=== PATIENT | female | born 1940 | race Caucasian/White ===

== ENCOUNTER → 2016-12-11 | Outpatient (CLI) | payer MEDICARE, OTHER | END | disposition home or self-care (01) | LOC: LABWHC1 14:21 | PROVIDERS: ATTEND Internal Medicine | DX: R31.21 Asymptomatic microscopic hematuria (principal) | CPT/HCPCS: 88108 ==

== ENCOUNTER → 2017-11-13 | Outpatient (CLI) | payer MEDICARE, OTHER | END | disposition home or self-care (01) | LOC: LABWHC1 12:46 | PROVIDERS: ATTEND Orthopaedic Surgery | DX: Z01.812 Encounter for preprocedural laboratory examination (principal) | CPT/HCPCS: 87070 ==

== ENCOUNTER 2017-12-11 06:17 | Inpatient (IN) | payer MEDICARE, OTHER ==
[2017-11-29 13:02] VITALS: BMI 22.8
--- NOTE | 2017-12-10 10:29 | HP ---
HISTORY AND PHYSICAL CHIEF COMPLAINT: Right knee pain. HISTORY OF PRESENT ILLNESS: The patient is a 76-year-old retired female who presents with progressive right knee pain, worsening over the past several years. She notes swelling along with pain that limits her normal function and activities. She has tried medications and injections with only partial temporary relief. PAST MEDICAL HISTORY: Significant for arthritis, hypertension, hypercholesterolemia. PAST SURGICAL HISTORY: Significant for breast biopsy, cataract surgery and tonsillectomy. CURRENT MEDICATIONS: Crestor and losartan along with ibuprofen. ALLERGIES: SHE NOTES ALLERGIES TO CODEINE ALONG WITH CERTAIN WILLIAM INHIBITORS. FAMILY HISTORY: Significant for cancer and heart disease. SOCIAL HISTORY: Negative for current tobacco or alcohol use. REVIEW OF SYSTEMS: Sixteen point review of systems otherwise reviewed and is noncontributory. PHYSICAL EXAMINATION: On examination, the patient is approximately 5 feet 3 130 pounds of mesomorphic habitus. HEENT exam is nonfocal. NECK: Supple. She has painless passive motion of the right hip. Straight leg raise is negative. Active motion right knee -10 to 120 degrees of flexion. She has large effusion. Collaterals are stable, Alexandro's negative, Cari's is equivocal. She is tender about the medial joint line. She has genu varum alignment. Her distal neurovascular exam appears intact in the right lower extremity. Previous weightbearing notch, lateral and Merchant views of the right knee obtained in the office show severe medial compartment narrowing. IMPRESSION: 1. Right knee severe medial compartment osteoarthrosis. 2. Hypertension. RECOMMENDATIONS: I talked to the patient at length regarding her condition and treatment options. At this point, she remains quite symptomatic despite extensive conservative measures. After thorough discussion, she opts to proceed with surgery. We will plan to proceed with right total knee arthroplasty. Risks and benefits were discussed at length in layman's terms. We will institute DVT prophylaxis postoperatively. The patient underwent preoperative medical evaluation by Dr. Rosario. MMCADY / NAVIN: [id number] /
[~2017-12-11 06:17] MED LIST: ACETAMINOPHEN TAB 500 MG TAB PO ONE; MELOXICAM 7.5 MG TAB PO ONE; TRANEXAMIC ACID 1,000 MG in SODIUM CHLORIDE 0.9% 50 ML IVPB ONE; ceFAZolin IN SWFI 2 GM/20 ML SYRINGE IVP ONE; fentaNYL (PF) 50 MCG/ML 2 ML AMP IV PRN
[2017-12-11] MEDS: LACTATED RINGERS 1,000 ML IV SCH ×2 (06:57→19:19)
[2017-12-11] MEDS ORDERED: LIDOCAINE 1% 20 ML VIAL (10MG/ML) FOR IV START INTRADERMA ONE (06:58)
[2017-12-11] MEDS ORDERED: ONDANSETRON 4 MG/2 ML VIAL ONE (07:00)
[2017-12-11] MEDS ORDERED: MIDAZOLAM 2 MG/2 ML VIAL ONE (07:00)
--- NOTE | 2017-12-11 07:42 | P.ONQ ---
Anesthesiology Proc Note - PNB - Peripheral Nerve Block Performed Right Adductor Canal Infusion Time Out Performed: Yes Procedure Start Time: 07:15 Procedure Stop Time: 07:30 Indication: Acute Post-Operative Pain, Requested by physician (Dr Mccullough) Sedation Type: Sedate with meaningful contact maintained Preparation: Sterile Dressing Position: Supine Catheter: Indwelling Needle Types: Toalbiny Needle Size: 100mm (4") Needle Gauge: 18 Technique: Ultrasound Injectate: 0.5% Ropivacaine (see comment for volume) (30 mls) Blood Aspirated: No Pain Paresthesia on Injection Noted: No Resistance on Injection: Normal Events: Uneventful and Well Tolerated
[2017-12-11] MEDS ORDERED: ROPIVACAINE 1,100 MG, SODIUM CHLORIDE 0.9% 500 ML 330 ML MISCELLANE PRN ×2 (07:43)
[2017-12-11] MEDS ORDERED: ROPIVACAINE 246.25 MG, EPINEPHrine 0.5 MG, KETOROLAC 30 MG, cloNIDine HCL/PF 80 MCG, WA... MISCELLANE ONE ×5 (08:05)
[2017-12-11] MEDS ORDERED: ceFAZolin 3,000 MG in SODIUM CHLORIDE 0.9% IRRIGATIO 3,000 ML IRRIGATION ONE (08:53)
[2017-12-11] MEDS ORDERED: MAGNESIUM HYDROXIDE 2,400 MG/10 ML CUP PO PRN (09:52)
[2017-12-11] MEDS ORDERED: ONDANSETRON 4 MG/2 ML VIAL IVP PRN (09:52)
[2017-12-11] MEDS ORDERED: LACTATED RINGERS 1,000 ML IV ONE (09:52)
[2017-12-11] MEDS ORDERED: HYDROmorphone 1 MG/ML 1 ML SYRINGE IVP PRN (09:52)
[2017-12-11] MEDS ORDERED: NALOXONE 0.4 MG/ML 1 ML VIAL IV PRN (09:52)
--- NOTE | 2017-12-11 10:29 | P.OP ---
Date of Procedure: 12/11/17 Preoperative Diagnosis: Right knee severe tricompartmental osteoarthrosis Postoperative Diagnosis: Same Procedure(s) Performed: Right total knee tdxtsfuczegz-mwxpecsu-kusqeemq retaining Implants: Depuy Attune size 5 cemented femoral component, size 4 cemented tibial component , 9 mm articular surface, 32 mm cemented patellar component. This is a cruciate retaining implant. Anesthesia: regional, local, spinal Surgeon: Shun Mccullough Legal Contracts Specialist #1: Napoleon Guerra Estimated Blood Loss (ml): 50 Pathology: other (Bone fragments) Condition: stable Disposition: PACU Indications for Procedure: The patient's a 76-year-old female who presents with progressive right knee pain secondary to osteoarthrosis despite conservative measures. A discussion of the risks and benefits of operative intervention versus continued conservative measures was made with patient. She opted to proceed with surgery. Operative risks to include infection, neurovascular injury, development of blood clots, possible component loosening, possible component failure and need for subsequent procedures was discussed. Informed consent was obtained. Operative Findings: As below Description of Procedure: The patient was brought to the operating room, and after induction of spinal anesthesia the right lower extremity was prepped and draped in normal fashion. The tourniquet was inflated to 270 mmHg. A longitudinal incision extending 3 finger breaths above the superior pole of patella extending to the medial aspect the tibial tubercle was then made. The skin and subcutaneous tissues were divided sharply. Electrocautery was used for hemostasis. A medial parapatellar arthrotomy was then performed. The medial soft tissues to include the superficial and deep portions the medial collateral ligament as well as the medial hamstring tendons were elevated subperiosteally. The proximal medial tibia osteophytes were carefully removed. The patella was everted. A portion of the retropatellar fat pad was excised sharply. The knee was flexed. The anterior cruciate ligament sacrificed. Blunt retractors were placed. A starting hole was made in the distal femur 1 cm anterior to the posterior cruciate ligament origin. An intramedullary femoral guide was then gently inserted planning on 5 valgus distal cut with 9 mm distal resection. The cutting block was pinned in place. The distal cut was then made. The posterior referencing sizing guide was utilized. I felt size 5 was most appropriate. 3 of external rotation was built into the system and verified off the trans-epicondylar axis and the posterior condyles. The cutting block was pinned in place. The anterior, posterior, and chamfer cuts were then made. The sulcus cut was made with the appropriate guide. The trial size 5 femoral component was placed and was fully seated. There is good anterior to posterior and medial to lateral fit. The distal peg holes were drilled. The trial component was removed. Attention was then paid towards preparing the proximal tibia. An extra medullary tibial guide was utilized in line with the tibial shaft and second metatarsal distally. I planned on 7 posterior slope. I planned on 2 mm resection from the medial compartment. The posterior cruciate ligament was protected with a retractor. The proximal tibial cut was made in the bone removed in one fragment. The tibia sized most appropriately size 4. The remnants of the medial and lateral menisci were excised the capsule junction with electrocautery. The posterior osteophytes off the distal femur were carefully removed with a curved osteotome. The trial femoral and tibial components were placed along with a 9 mm articular surface. I was able to obtain full flexion and extension with good stability with varus and valgus stress. After several flexion and extension cycles, the tibial rotation was marked with electrocautery in line with the medial one third of the tibial tubercle. The trial components were then removed. The tibia was prepared in the appropriate rotation with the appropriate drill and keel punch. The flexion and extension gaps were checked and felt to be symmetric. The posterior soft tissues were injected with ropivacaine. The bony surfaces were prepared with pulsatile lavage and dried. Additional drill holes were made in the proximal medial tibia to facilitate cement interdigitation. The tibial component was then cemented in placed and was fully seated. Excess cement was removed. The femoral component was cemented place and was fully seated. Excess cement was removed. The trial 9 mm surface was placed and the knee was put in full extension. The patella component was cemented in placed and was fully seated. After the cement had sufficiently hardened, the knee was again taken through range of motion. Again I was able to obtain full flexion and extension with good stability with varus and valgus stress. The trial articular surface was removed and the final 9 mm tibial surface placed. This was fully seated. Care taken to avoid any soft tissue interposition. Pulsatile lavage was again utilized. The medial parapatellar arthrotomy was closed with #2 Ethibond suture. The tourniquet was deflated with approximately 55 minutes total tourniquet time. Final hemostasis was obtained with electrocautery. The second dose of IV TXA was given. A deep drain was placed exiting laterally. The subcutaneous tissues were reapproximated with interrupted 2-0 Vicryl sutures. The skin was reapproximated with 3-0 subcuticular strata fix suture. Skin tape and adhesive was applied. A sterile dressing was applied. The patient was then awoken from sedation and transferred to the recovery room in good condition. Blood loss was estimated 50 mL. No complications were incurred. Sponge and needle counts were correct at the end of the case. Wilfredo JOEL assisted during the major components the case to include tibial and femoral preparation, component implantation, and closure.
[2017-12-11] MEDS: HYDROmorphone 1 MG/ML 1 ML SYRINGE IVP PRN ×2 (10:44→11:04)
--- NOTE | 2017-12-11 11:32 | XR ---
EXAMINATION TYPE: XR knee limited RT DATE OF EXAM: 12/11/2017 CLINICAL HISTORY: Right knee pain and arthritis status post total knee replacement. TECHNIQUE: Portable AP and crosstable lateral views of the right knee are obtained immediately posto peratively. COMPARISON: None FINDINGS: Metallic hardware from total right knee arthroplasty is seen and appears satisfactory in a lignment and position. There is evidence of recent surgery with scattered subcutaneous gas and perc utaneous suprapatellar surgical drain noted. IMPRESSION: METALLIC HARDWARE FROM TOTAL RIGHT KNEE ARTHROPLASTY IS SATISFACTORY IN ALIGNMENT.
--- NOTE | 2017-12-11 14:22 | P.CONS ---
History of Present Illness - Reason for Consult Consult date: 12/11/17 Medical management - History of Present Illness This is a 76-year-old female patient of Dr. Rosario with past medical history of hypertension, hyperlipidemia, varicose veins. Patient has been admitted under the care of Dr. Mccullough status post right total knee arthroplasty. Patient is seen in the recovery room and has not had any postop complications. Q pump is being placed by anesthesia. Review of Systems All systems: negative Constitutional: Denies chills, Denies fatigue, Denies fever, Denies poor appetite, Denies sweats, Denies weight loss Eyes: denies blurred vision, denies pain Ears, nose, mouth and throat: Denies headache, Denies sore throat, Denies vertigo Cardiovascular: Denies chest pain, Denies decreased exercise tolerance, Denies dyspnea on exertion, Denies edema, Denies leg edema, Denies lightheadedness, Denies shortness of breath, Denies syncope Respiratory: Denies cough, Denies cough with sputum, Denies dyspnea, Denies excessive sputum, Denies hemoptysis, Denies home oxygen, Denies wheezing Gastrointestinal: Denies abdominal pain, Denies diarrhea, Denies loss of appetite, Denies nausea, Denies vomiting Genitourinary: Denies dysuria, Denies hematuria, Denies urgency, Denies urinary frequency Musculoskeletal: Denies frequent falls, Denies gait dysfunction, Denies myalgias Musculoskeletal: right: knee pain Integumentary: Denies pruritus, Denies rash Neurological: Denies change in mentation, Denies confusion, Denies numbness, Denies weakness Psychiatric: Denies anxiety, Denies depression Endocrine: Denies fatigue, Denies weight change Past Medical History Past Medical History: Hyperlipidemia, Hypertension Additional Past Medical History / Comment(s): left leg varicose veins History of Any Multi-Drug Resistant Organisms: None Reported Past Surgical History: Breast Surgery, Tonsillectomy Additional Past Surgical History / Comment(s): benign breast bx, archie cataracts, fatty tumor groin, colonoscopy Past Anesthesia/Blood Transfusion Reactions: Previous Problems w/ Anesthesia, Postoperative Nausea & Vomiting (PONV) Additional Past Anesthesia/Blood Transfusion Reaction / Comm: states "sensitive " to anesthesia, "took several days to clear my system", an anesthesia "cocktail " caused nausea Smoking Status: Never smoker Additional Past Alcohol Use History / Comment(s): Patient is a lifelong nonsmoker. She states she drinks 2-3 alcoholic beverages per week. No illicit drug use. She is a and lives alone. Discharge plan is to [facility]. - Past Family History Sister(s) Family Medical History: Cancer Additional Family Medical History / Comment(s): Patient had one sister that at 50 years of age from kidney cancer. No brothers. Father Additional Family Medical History / Comment(s): Father at age 86 from complications of a lung fungus. Mother Additional Family Medical History / Comment(s): Mother at age 91 from old age. Patient has 3 children with no major medical problems. Medications and Allergies Home Medications Medication Instructions Recorded Confirmed Type Losartan Potassium 50 mg PO BID 11/29/17 12/11/17 History Rosuvastatin Calcium [Crestor] 5 mg PO HS 11/29/17 12/11/17 History Allergies Allergy/AdvReac Type Severity Reaction Status Date / Time codeine Allergy Unknown Verified 12/11/17 11:43 Physical Exam Vitals: Vital Signs Temp Pulse Pulse Resp BP Pulse Ox 12/11/17 11:45 68 16 169/73 100 12/11/17 11:30 68 16 186/72 95 12/11/17 11:15 76 16 158/69 100 12/11/17 11:00 75 16 161/71 100 12/11/17 10:45 72 16 167/72 97 12/11/17 10:30 76 16 169/73 100 12/11/17 10:20 98.3 F 84 16 170/80 98 12/11/17 07:39 71 16 165/70 100 12/11/17 06:38 97.8 F 85 16 196/81 99 Intake and Output 12/10/17 12/11/17 12/11/17 22:59 06:59 14:59 Intake Total 300 701 Output Total 350 Balance 300 351 Intake: IV 300 701 Output: Urine 300 Estimated Blood Loss 50 Gen: This is a 76-year-old female. She is on a stretcher in the recovery room and appears to be comfortable. HEENT: Head is atraumatic, normocephalic. Pupils equal, round. Sclerae is anicteric. NECK: Supple. No JVD. No lymphadenopathy. No thyromegaly. LUNGS: Clear to auscultation. No wheezes or rhonchi. No intercostal retractions. HEART: Regular rate and rhythm. No murmur. ABDOMEN: Soft. Bowel sounds are present. No masses. No tenderness. EXTREMITIES: No pedal edema. No calf tenderness. Large dressing in place to the right knee which was not removed. NEUROLOGICAL: Patient is awake, alert and oriented x3. Cranial nerves 2 through 12 are grossly intact. Assessment and Plan Plan: 1. Osteoarthritis status post right total knee arthroplasty. Continue current pain management, PT OT per orthopedics. Incentive spirometry to reduce atelectases and hospital-acquired pneumonia. Q pump in place. Xarelto is DVT prophylaxis. 2. Hypertension. Patient is on losartan 50 mg twice daily which will be resumed with parameters. 3. Hyperlipidemia. Continue Crestor 5 mg at bedtime. 4. GI prophylaxis. Pepcid. Patient will be admitted to the hospital for a minimum of 2 night stay. Discharge plan: [facility] under the care of Dr. Rosario Impression and plan of care have been directed as dictated by the signing physician. Cathi Young nurse practitioner acting as scribe for signing physician.
[2017-12-11] MEDS: ceFAZolin IN SWFI 2 GM/20 ML SYRINGE IVP SCH ×2 (15:53→23:37)
[2017-12-11] MEDS: HYDROcodone/APAP 5-325MG 1 EACH TAB PO PRN ×2 (17:47→23:36)
[2017-12-11] MEDS: LOSARTAN 50 MG TAB PO SCH (20:22)
[2017-12-11] MEDS: ATORVASTATIN 10 MG TAB PO SCH (20:22)
[2017-12-11] MEDS: SENNOSIDES-DOCUSATE SODIUM 1 EACH TAB PO SCH (20:22)
[2017-12-11] MEDS: traMADol 50 MG TAB PO PRN (22:17)
[2017-12-12] MEDS: HYDROcodone/APAP 5-325MG 1 EACH TAB PO PRN ×3 (05:17→19:08)
[2017-12-12] MEDS: HYDROmorphone 1 MG/ML 1 ML SYRINGE IVP PRN (07:13)
[2017-12-12 07:45] LABS: Basophils % (A) 1 %; Eosinophils # (A) 0.1 k/uL (0-0.7); Eosinophils % (A) 2 %; HCT 34.5 % (34.0-46.0); HGB 11.4 gm/dL (11.4-16.0); Lymphocytes # (A) 1.1 k/uL (1.0-4.8); Lymphocytes % (A) 20 %; MCH 32.8 pg (25.0-35.0); MCHC 33.2 g/dL (31.0-37.0); MCV 98.8 fL (80.0-100.0); Mean Platelet Volume 6.7; Monocytes # (A) 0.4 k/uL (0-1.0); Monocytes % (A) 8 %; Neutrophils # (A) 3.6 k/uL (1.3-7.7); Neutrophils % (A) 68 %; Platelet Count 175 k/uL (150-450); RBC 3.49 m/uL (3.80-5.40); RDW 12.4 % (11.5-15.5); WBC 5.3 k/uL (3.8-10.6)
[2017-12-12] MEDS: RIVAROXABAN 10 MG TAB PO SCH (08:10)
[2017-12-12] MEDS: LOSARTAN 50 MG TAB PO SCH ×2 (08:10→20:42)
--- NOTE | 2017-12-12 10:08 | P.PN ---
Subjective Progress Note Date: 12/12/17 Principal diagnosis: Status post right total knee arthroplasty Patient seen resting in her hospital bed, she appears comfortable. She's ambulated with therapy. She denies any chest pain, shortness of breath, fever chills. Objective - Vital Signs Vital signs: Vital Signs Temp 98.1 F 12/12/17 07:31 Pulse 74 12/12/17 07:31 Resp 16 12/12/17 07:31 BP 145/64 12/12/17 07:31 Pulse Ox 98 12/12/17 07:31 Intake & Output 12/11/17 12/12/17 12/12/17 18:59 06:59 18:59 Intake Total 1141 350 Output Total 990 2080 Balance 151 -2080 350 Weight 57.606 kg Intake: IV 1101 Intake, IV Titration 40 Amount Lactated Ringers 1,000 ml 40 @ 40 mls/hr IV .Q24H [facility] Rx#:[id number] Oral 350 Output: Drainage 230 Right Knee 230 Urine 850 1850 Estimated Blood Loss 140 Other: Voiding Method Indwelling Catheter Indwelling Catheter - Exam Right Lower extremity: Incision is clean, dry, and intact. The prineo tape is in good condition. There is minimal soft tissue swelling and ecchymosis surrounding the medial and lateral aspects of the incision. Calf is soft, no tenderness with palpation. Plantar flexion, dorsiflexion, EHL, FHL are intact. Sensory exam to light touch throughout the extremity is intact, dorsal pedis pulses 2+. - Labs CBC & Chem 7: 12/12/17 07:24 Labs: Abnormal Lab Results - Last 24 Hours (Table) 12/12/17 Range/Units 07:24 RBC 3.49 L (3.80-5.40) m/uL Assessment and Plan Plan: Assessment: Postoperative day 1 status post right total knee arthroplasty Plan: Pain control, continue use of oral medication as needed GI and DVT prophylaxis, continue current medication Daily dressing changes/ice and elevate Encourage incentive spirometer Continue work physical therapy and use of CPM Medical recommendations Discharge planning: Patient is interested in going to rehab, plan for discharge in the next couple days Time with Patient: Less than 30
[2017-12-12] MEDS ORDERED: HYDROmorphone 2 MG TAB PO PRN ×2 (10:45→10:46)
--- NOTE | 2017-12-12 15:23 | P.PN ---
Subjective Progress Note Date: 12/12/17 This is a 76-year-old female patient of Dr. Rosario with past medical history of hypertension, hyperlipidemia, varicose veins. Patient has been admitted under the care of Dr. Mccullough status post right total knee arthroplasty. Patient is seen in the recovery room and has not had any postop complications. Q pump is being placed by anesthesia. 12/12: Patient has had no postoperative complications. She has worked with physical therapy. She states her pain is tolerable. Vital signs have been stable. No nausea vomiting. She is on Xarelto for DVT prophylaxis. Review Of Systems: Constitutional: No fever, no chills, no night sweats. EENT: No headache. Lungs: No shortness of breath, cough, no sputum production. No wheezing. Cardiovascular: No chest pain, no lower extremity edema. Abdominal: No abdominal pain. No nausea, vomiting. No diarrhea. No constipation. No bloody or tarry stools.. No loss of appetite. Genitourinary: No dysuria, increased frequency, urgency. No urinary retention. Musculoskeletal: No myalgias. No muscle weakness, no gait dysfunction, no frequent falls. No back pain. No neck pain. Integumentary: no lesions. No rash or pruritus. No unusual bruising. No change in hair or nails. Objective - Vital Signs Vital signs: Vital Signs Temp 98.1 F 12/12/17 07:31 Pulse 74 12/12/17 07:31 Resp 16 12/12/17 07:31 BP 145/64 12/12/17 07:31 Pulse Ox 98 12/12/17 07:31 Intake & Output 12/11/17 12/12/17 12/12/17 18:59 06:59 18:59 Intake Total 1141 350 Output Total 990 2080 Balance 151 -2080 350 Weight 57.606 kg Intake: IV 1101 Intake, IV Titration 40 Amount Lactated Ringers 1,000 ml 40 @ 40 mls/hr IV .Q24H [facility] Rx#:[id number] Oral 350 Output: Drainage 230 Right Knee 230 Urine 850 1850 Estimated Blood Loss 140 Other: Voiding Method Indwelling Catheter Indwelling Catheter - Exam Gen: This is a 76-year-old female. She is in bed and appears to be comfortable. HEENT: Head is atraumatic, normocephalic. Pupils equal, round. Sclerae is anicteric. NECK: Supple. No JVD. No lymphadenopathy. No thyromegaly. LUNGS: Clear to auscultation. No wheezes or rhonchi. No intercostal retractions. HEART: Regular rate and rhythm. No murmur. ABDOMEN: Soft. Bowel sounds are present. No masses. No tenderness. EXTREMITIES: No pedal edema. No calf tenderness. Small dressing in place to the right knee with no break through bleeding or drainage. NEUROLOGICAL: Patient is awake, alert and oriented x3. Cranial nerves 2 through 12 are grossly intact. - Labs CBC & Chem 7: 12/12/17 07:24 Labs: Abnormal Lab Results - Last 24 Hours (Table) 12/12/17 Range/Units 07:24 RBC 3.49 L (3.80-5.40) m/uL Assessment and Plan Plan: 1. Osteoarthritis status post right total knee arthroplasty. Continue current pain management, PT OT per orthopedics. Incentive spirometry to reduce atelectases and hospital-acquired pneumonia. Q pump in place. Xarelto is DVT prophylaxis. 2. Hypertension. Patient is on losartan 50 mg twice daily which will be resumed with parameters. Blood pressure is stable. 3. Hyperlipidemia. Continue Crestor 5 mg at bedtime. 4. GI prophylaxis. Pepcid. Discharge plan: [facility] under the care of Dr. Rosario Impression and plan of care have been directed as dictated by the signing physician. Cathi Young nurse practitioner acting as scribe for signing physician.
--- NOTE | 2017-12-12 19:35 | P.PN ---
Progress Note - Text 12/12 5648 77-year-old female status post total knee replacement . Patient has On-Q pump infusion for postop pain control with a VAS of 3. Plan to continue On-Q pump infusion
[2017-12-12] MEDS: ATORVASTATIN 10 MG TAB PO SCH (20:42)
[2017-12-12] MEDS: SENNOSIDES-DOCUSATE SODIUM 1 EACH TAB PO SCH (20:42)
[2017-12-13] MEDS: traMADol 50 MG TAB PO PRN ×2 (09:50→16:43)
[2017-12-13] MEDS: LOSARTAN 50 MG TAB PO SCH ×2 (09:52→20:33)
[2017-12-13] MEDS: RIVAROXABAN 10 MG TAB PO SCH (09:52)
--- NOTE | 2017-12-13 13:14 | P.PN ---
Subjective Progress Note Date: 12/13/17 his is a 76-year-old female patient of Dr. Rosario with past medical history of hypertension, hyperlipidemia, varicose veins. Patient has been admitted under the care of Dr. Mccullough status post right total knee arthroplasty. Patient is seen in the recovery room and has not had any postop complications. Q pump is being placed by anesthesia. 12/12: Patient has had no postoperative complications. She has worked with physical therapy. She states her pain is tolerable. Vital signs have been stable. No nausea vomiting. She is on Xarelto for DVT prophylaxis. 12/13 patient examined bedside with no acute abnormality. Denies constipation denies any shortness of breath or chest pain. Plan for subacute rehab tomorrow Review Of Systems: no change Constitutional: No fever, no chills, no night sweats. EENT: No headache. Lungs: No shortness of breath, cough, no sputum production. No wheezing. Cardiovascular: No chest pain, no lower extremity edema. Abdominal: No abdominal pain. No nausea, vomiting. No diarrhea. No constipation. No bloody or tarry stools.. No loss of appetite. Genitourinary: No dysuria, increased frequency, urgency. No urinary retention. Musculoskeletal: No myalgias. No muscle weakness, no gait dysfunction, no frequent falls. No back pain. No neck pain. Integumentary: no lesions. No rash or pruritus. No unusual bruising. No change in hair or nails. Objective - Vital Signs Vital signs: Vital Signs Temp 98.6 F 12/13/17 08:45 Pulse 86 12/13/17 08:45 Resp 16 12/13/17 08:45 BP 146/65 12/13/17 08:45 Pulse Ox 99 12/13/17 08:45 Intake & Output 12/12/17 12/13/17 12/13/17 18:59 06:59 18:59 Intake Total 1150 240 Balance 1150 240 Intake: Intake, IV Titration 200 Amount Lactated Ringers 1,000 ml 200 @ 40 mls/hr IV .Q24H [facility] Rx#:[id number] Oral 950 240 Other: Voiding Method Toilet Toilet Toilet # Voids 2 1 - Exam Gen: This is a 77-year-old female. She is inchair and appears to be comfortable. HEENT: Head is atraumatic, normocephalic. Pupils equal, round. Sclerae is anicteric. NECK: Supple. No JVD. No lymphadenopathy. No thyromegaly. LUNGS: Clear to auscultation. No wheezes or rhonchi. No intercostal retractions. HEART: Regular rate and rhythm. No murmur. ABDOMEN: Soft. Bowel sounds are present. No masses. No tenderness. EXTREMITIES: No pedal edema. No calf tenderness. Small dressing in place to the right knee with no break through bleeding or drainage. mobility improved since yesterday NEUROLOGICAL: Patient is awake, alert and oriented x3. Cranial nerves 2 through 12 are grossly intact. - Labs CBC & Chem 7: 12/12/17 07:24 Assessment and Plan Plan: 1. Osteoarthritis status post right total knee arthroplasty. Continue current pain management, PT OT per orthopedics. Incentive spirometry to reduce atelectases and hospital-acquired pneumonia. Q pump in place. Xarelto is DVT prophylaxis. 2. Hypertension. Patient is on losartan 50 mg twice daily which will be resumed with parameters. Blood pressure is stable. 3. Hyperlipidemia. Continue Crestor 5 mg at bedtime. 4. GI prophylaxis. Pepcid. [facility] of Dr. Ros[facility]
--- NOTE | 2017-12-13 14:01 | P.PN ---
Subjective Progress Note Date: 12/13/17 Principal diagnosis: Status post right total knee arthroplasty Patient seen resting in her hospital bed, she appears comfortable. She's ambulated with therapy. She denies any chest pain, shortness of breath, fever chills. Objective - Vital Signs Vital signs: Vital Signs Temp 98.6 F 12/13/17 08:45 Pulse 86 12/13/17 08:45 Resp 16 12/13/17 08:45 BP 146/65 12/13/17 08:45 Pulse Ox 99 12/13/17 08:45 Intake & Output 12/12/17 12/13/17 12/13/17 18:59 06:59 18:59 Intake Total 1150 240 Balance 1150 240 Intake: Intake, IV Titration 200 Amount Lactated Ringers 1,000 ml 200 @ 40 mls/hr IV .Q24H MICHAEL Rx#:[id number] Oral 950 240 Other: Voiding Method Toilet Toilet Toilet # Voids 2 1 - Exam Right Lower extremity: Incision is clean, dry, and intact. The prineo tape is in good condition. There is minimal soft tissue swelling and ecchymosis surrounding the medial and lateral aspects of the incision. Calf is soft, no tenderness with palpation. Plantar flexion, dorsiflexion, EHL, FHL are intact. Sensory exam to light touch throughout the extremity is intact, dorsal pedis pulses 2+. - Labs CBC & Chem 7: 12/12/17 07:24 Assessment and Plan Plan: Assessment: Postoperative day #2 status post right total knee arthroplasty Plan: Pain control, continue use of oral medication as needed GI and DVT prophylaxis, continue current medication Daily dressing changes/ice and elevate Encourage incentive spirometer Continue work physical therapy and use of CPM Medical recommendations Discharge planning: Plan for discharge tomorrow Time with Patient: Less than 30
[2017-12-13] MEDS: SENNOSIDES-DOCUSATE SODIUM 1 EACH TAB PO SCH (20:33)
[2017-12-13] MEDS: ATORVASTATIN 10 MG TAB PO SCH (20:33)
[2017-12-14] MEDS: traMADol 50 MG TAB PO PRN ×3 (00:17→13:21)
[2017-12-14] MEDS: RIVAROXABAN 10 MG TAB PO SCH (07:31)
[2017-12-14] MEDS: LOSARTAN 50 MG TAB PO SCH (07:31)
[2017-12-14 07:55] LABS: Basophils % (A) 1 %; Eosinophils # (A) 0.1 k/uL (0-0.7); Eosinophils % (A) 2 %; HCT 35.2 % (34.0-46.0); HGB 11.3 gm/dL (11.4-16.0); Lymphocytes # (A) 0.9 k/uL (1.0-4.8); Lymphocytes % (A) 17 %; MCH 31.8 pg (25.0-35.0); MCV 99.2 fL (80.0-100.0); Mean Platelet Volume 6.8; Monocytes # (A) 0.3 k/uL (0-1.0); Monocytes % (A) 6 %; Neutrophils # (A) 3.7 k/uL (1.3-7.7); Neutrophils % (A) 72 %; Platelet Count 196 k/uL (150-450); RBC 3.55 m/uL (3.80-5.40); RDW 12.3 % (11.5-15.5); WBC 5.1 k/uL (3.8-10.6)
[2017-12-14 08:19] VITALS: RESP 14; TEMP 98.7
[2017-12-14 08:53] VITALS: BP 122/57; PULSE 86
--- NOTE | 2017-12-14 10:27 | P.PN ---
Subjective Progress Note Date: 12/14/17 Principal diagnosis: Status post right total knee arthroplasty Patient seen resting in her hospital bed, she appears comfortable. She's ambulated with therapy. She denies any chest pain, shortness of breath, fever chills. Objective - Vital Signs Vital signs: Vital Signs Temp 98.7 F 12/14/17 07:31 Pulse 86 12/14/17 08:53 Resp 14 12/14/17 07:31 BP 122/57 12/14/17 08:53 Pulse Ox 99 12/14/17 00:13 Intake & Output 12/13/17 12/14/17 12/14/17 18:59 06:59 18:59 Intake Total 702 Balance 702 Intake: Intake, IV Titration 0 Amount Lactated Ringers 1,000 ml 0 @ 0 mls/hr IV .[employer] ONE Rx#:[id number] Oral 702 Other: Voiding Method Toilet Toilet Toilet # Voids 2 1 - Exam Right Lower extremity: Incision is clean, dry, and intact. The prineo tape is in good condition. There is minimal soft tissue swelling and ecchymosis surrounding the medial and lateral aspects of the incision. Calf is soft, no tenderness with palpation. Plantar flexion, dorsiflexion, EHL, FHL are intact. Sensory exam to light touch throughout the extremity is intact, dorsal pedis pulses 2+. - Labs CBC & Chem 7: 12/14/17 07:12 Labs: Abnormal Lab Results - Last 24 Hours (Table) 12/14/17 Range/Units 07:12 RBC 3.55 L (3.80-5.40) m/uL Hgb 11.3 L (11.4-16.0) gm/dL Lymphocytes # 0.9 L (1.0-4.8) k/uL Assessment and Plan Plan: Assessment: Postoperative day #3 status post right total knee arthroplasty Plan: Pain control, continue use of oral medication as needed GI and DVT prophylaxis, discharge on Xarelto 10mg Daily dressing changes/ice and elevate Encourage incentive spirometer Continue work physical therapy and use of CPM Medical recommendations Discharge planning: Plan for discharge to rehab today Time with Patient: Less than 30
--- NOTE | 2017-12-14 10:33 | P.DS ---
Providers Date of admission: 12/11/17 06:17 Expected date of discharge: 12/14/17 Attending physician: Shun Mccullough Consults: 12/11/17 09:55 Consult Physician Routine Consulting Provider: Daniela Rosario Consult Reason/Comments: Medical Management Do you want consulting provider notified?: Yes Primary care physician: Daniela Rosario Hospital Course: Date of admission: 12/11/2017 Date of discharge: 12/14/2017 Admission diagnosis: Status post right total knee arthroplasty Discharge diagnosis: Same Attending physician: Dr. Mccullough Surgical procedures: Right total knee arthroplasty Brief history: Patient is a 77-year-old female with a history of progressive primary right knee osteoarthritis. At this point patient has failed conservative treatment measures and has opted to proceed with a elective right total knee arthroplasty. Hospital course: Details of patient's surgery can be found in operative report. Patient tolerated the procedure well and was subsequently transported to orthopedic floor. Patient's orthopeidc and medical care was provided daily. Patient had daily laboratory tests performed for evaluation of overall blood counts. Patient had daily physical therapy to include strengthening range of motion as well as education with walker ambulation. Patient had daily CPM usage as part of their physical therapy program. Patient was treated with Xarelto for their postoperative DVT prophylaxis during their inpatient stay. Patient was noted to have a relatively uneventful postoperative course. Patient reported satisfactory pain control with oral pain medications by postoperative day 0. Patient showed satisfactory progress with physical therapy. Patient moved steadily through the program and had no difficulty meeting the goals by postoperative day 3. Given patient's otherwise satisfactory course and having met physical therapy goals, plan is to discharge patient rehab on postoperative day 3. Discharge condition/disposition: Patient will be discharged to rehab in stable condition. Discharge medications: Instructions are given on resumption of patient's normal daily medications per primary care recommendation, in addition patient will be prescribed [place] 5 mg/325 mg, tramadol 50 mg, Xarelto 10 m8. Discharge instructions: 1. Wound care and infection precautions, keep incision dry and covered while showering, no lotions, creams, moisturizers. No soaking, tubs, pools, hottubs. Do not scrub over the incision. 2. Weight-bear as tolerated with walker / cane until follow-up. 3. Ice and elevate when necessary. Do not exceed 20 minutes per hour with ice pack. 4. Utilize compression sleeve until seen at first follow up appointment. 5. Visiting nursing care. 6. Home physical therapy including home CPM. 7. Pain meds and anticoagulants per prescription. 8. Pain medication has potential to cause constipation. Increase oral fluid and fiber intake. Contact primary care provider if you have not had a bowel movement within 48 hours after discharge 9. No anti-inflammatory medication until discussed at first post operative visit, this including Motrin, Aleve, Mobic, Diclofenac. 10. Follow up in office at 2 weeks postop with Wilfredo Guerra PA-C 11. Follow up with your primary care doctor 7-10 days after discharge. 12. Contact [facility] with any questions, . Procedures: Right total knee arthroplasty Patient Condition at Discharge: Good Plan - Discharge Summary Discharge Rx Participant: Yes New Discharge Prescriptions: New Hydrocodone/Acetaminophen [[place] 5-325] 1 each PO Q6HR PRN #28 tab PRN Reason: Pain Rivaroxaban [Xarelto] 10 mg PO DAILY #12 tab traMADol HCl [Ultram] 50 mg PO Q6H PRN #28 tab PRN Reason: Pain No Action Rosuvastatin Calcium [Crestor] 5 mg PO HS Losartan Potassium 50 mg PO BID Discharge Medication List Losartan Potassium 50 mg PO BID 11/29/17 [History] Rosuvastatin Calcium [Crestor] 5 mg PO HS 11/29/17 [History] Hydrocodone/Acetaminophen [[place] 5-325] 1 each PO Q6HR PRN #28 tab 12/14/17 [Rx] Rivaroxaban [Xarelto] 10 mg PO DAILY #12 tab 12/14/17 [Rx] traMADol HCl [Ultram] 50 mg PO Q6H PRN #28 tab 12/14/17 [Rx] Follow up Appointment(s)/Referral(s): Napoleon Guerra PAC [PHYSICIAN [employer]LE[employer] SERVICE OFFICER] - 12/26/17 3:30 pm Patient Instructions/Handouts: *Surgery [facility] - On-Q Pain Pump Discharge Instructions, Knee Replacement (DC) Discharge Disposition: TRANSFER TO SNF/ECF
--- NOTE | 2017-12-14 11:45 | P.PN ---
Subjective Progress Note Date: 12/14/17 his is a 76-year-old female patient of Dr. Rosario with past medical history of hypertension, hyperlipidemia, varicose veins. Patient has been admitted under the care of Dr. Mccullough status post right total knee arthroplasty. Patient is seen in the recovery room and has not had any postop complications. Q pump is being placed by anesthesia. 12/12: Patient has had no postoperative complications. She has worked with physical therapy. She states her pain is tolerable. Vital signs have been stable. No nausea vomiting. She is on Xarelto for DVT prophylaxis. 12/13 patient examined bedside with no acute abnormality. Denies constipation denies any shortness of breath or chest pain. Plan for subacute rehab tomorrow 12/14 patient sitting on the side of the bed. Complains of no chest pain no shortness of breath does have some swelling in the lower extremity post surgery. Some redness is noted around the surgical site but no sign of infection. Patient denies any fever or chills last night Review Of Systems: Constitutional: No fever, no chills, no night sweats. EENT: No headache. Lungs: No shortness of breath, cough, no sputum production. No wheezing. Cardiovascular: No chest pain, no lower extremity edema. Abdominal: No abdominal pain. No nausea, vomiting. No diarrhea. No constipation. No bloody or tarry stools.. No loss of appetite. Genitourinary: No dysuria, increased frequency, urgency. No urinary retention. Musculoskeletal: No myalgias. No muscle weakness, no gait dysfunction, no frequent falls. No back pain. No neck pain. Integumentary: no lesions. No rash or pruritus. No unusual bruising. No change in hair or nails. Positive for redness around the surgical site no site of infection Objective - Vital Signs Vital signs: Vital Signs Temp 98.7 F 12/14/17 07:31 Pulse 86 12/14/17 08:53 Resp 14 12/14/17 07:31 BP 122/57 12/14/17 08:53 Pulse Ox 99 12/14/17 00:13 Intake & Output 12/13/17 12/14/17 12/14/17 18:59 06:59 18:59 Intake Total 702 Balance 702 Intake: Intake, IV Titration 0 Amount Lactated Ringers 1,000 ml 0 @ 0 mls/hr IV .STK-MED ONE Rx#:[id number] Oral 702 Other: Voiding Method Toilet Toilet Toilet # Voids 2 1 - Exam Gen: This is a 77-year-old female. She is inchair and appears to be comfortable. HEENT: Head is atraumatic, normocephalic. Pupils equal, round. Sclerae is anicteric. NECK: Supple. No JVD. No lymphadenopathy. No thyromegaly. LUNGS: Clear to auscultation. No wheezes or rhonchi. No intercostal retractions. HEART: Regular rate and rhythm. No murmur. ABDOMEN: Soft. Bowel sounds are present. No masses. No tenderness. EXTREMITIES: No pedal edema. No calf tenderness. Small dressing in place to the right knee with no break through bleeding or drainage. mobility improved since yesterday NEUROLOGICAL: Patient is awake, alert and oriented x3. Cranial nerves 2 through 12 are grossly intact. - Labs CBC & Chem 7: 12/14/17 07:12 Labs: Abnormal Lab Results - Last 24 Hours (Table) 12/14/17 Range/Units 07:12 RBC 3.55 L (3.80-5.40) m/uL Hgb 11.3 L (11.4-16.0) gm/dL Lymphocytes # 0.9 L (1.0-4.8) k/uL Assessment and Plan Plan: 1. Osteoarthritis status post right total knee arthroplasty. Continue current pain management, PT OT per orthopedics. Incentive spirometry to reduce atelectases and hospital-acquired pneumonia. Xarelto 10 milligrams by mouth daily is DVT prophylaxis. 2. Hypertension. Patient is on losartan 50 mg twice daily which will be resumed with parameters. Blood pressure is stable. 3. Hyperlipidemia. Continue Crestor 5 mg at bedtime. 4. GI prophylaxis. Pepcid. [facility] Abraham musa
== END 2017-12-14 16:45 | DRG 470 ==
LOC: 2ORMAIN 06:17 → 3SUR 10:34
PROVIDERS: ADMIT Orthopaedic Surgery; ATTEND Orthopaedic Surgery
PROC: 0SRC0J9 Replacement of Right Knee Joint with Synthetic Substitute, Cemented, Open Approach (ICD-10-PCS; principal; 2017-12-11 08:00)
DX: M17.11 Unilateral primary osteoarthritis, right knee (principal); E78.00 Pure hypercholesterolemia, unspecified; E78.5 Hyperlipidemia, unspecified; I10 Essential (primary) hypertension; Z80.51 Family history of malignant neoplasm of kidney; Z60.2 Problems related to living alone; Z88.8 Allergy status to other drugs, medicaments and biological substances; Z79.899 Other long term (current) drug therapy; Z88.5 Allergy status to narcotic agent
CPT/HCPCS: 85025; 88300

== ENCOUNTER → 2019-01-17 | Outpatient (CLI) | payer MEDICARE, OTHER ==
--- NOTE | 2019-01-18 15:51 | ECHOF ---
Referral Reason:I35.0 valve stenosis MEASUREMENTS -------- HEIGHT: 158.8 cm WEIGHT: 55.3 kg BP: RVIDd: 2.8 cm (< 3.3) IVSd: 1.4 cm (0.6 - 1.1) LVIDd: 3.4 cm (3.9 - 5.3) LVPWd: 1.3 cm (0.6 - 1.1) IVSs: 1.6 cm LVIDs: 2.7 cm LVPWs: 1.8 cm LA Diam: 3.1 cm (2.7 - 3.8) LAESV Index (A-L): 32.06 ml/m Ao Diam: 3.2 cm (2.0 - 3.7) AV Cusp: 1.5 cm (1.5 - 2.6) MV EXCURSION: 14.273 mm (> 18.000) MV EF SLOPE: 37 mm/s (70 - 150) EPSS: 0.3 cm MV E Burton: 0.68 m/s MV DecT: 207 ms MV A Burton: 1.11 m/s MV E/A Ratio: 0.61 AV maxP.45 mmHg AV meanP.11 mmHg AR PHT: 347 ms RAP: 5.00 mmHg RVSP: 25.90 mmHg TAPSE: 21.52 mm FINDINGS -------- Sinus rhythm. This was a technically good study. The left ventricular size is normal. There is moderate concentric left ventricular hypertrophy. O verall left ventricular systolic function is normal with, an EF between 60 - 65 %. The right ventricle is normal in size. LA is midly dilated 29-33ml/m2. The right atrium is normal in size. Interatrial and interventricular septum intact. There is mild aortic valve sclerosis. There is mild aortic regurgitation. Peak/mean gradient acro ss the Aortic Valve is 14.45mmHg / 6.11mmHg. The mitral valve leaflets are mildly thickened. Mild mitral annular calcification present. There is trace to mild mitral regurgitation. Mild tricuspid regurgitation present. Right ventricular systolic pressure is normal at < 35 mmHg. Trace/mild (physiologic) pulmonic regurgitation. The aortic root size is normal. Normal inferior vena cava with normal inspiratory collapse consistent with estimated right atrial pre ssure of 5 mmHg. There is no pericardial effusion. CONCLUSIONS -------- 1. Sinus rhythm. 2. This was a technically good study. 3. The left ventricular size is normal. 4. There is moderate concentric left ventricular hypertrophy. 5. Overall left ventricular systolic function is normal with, an EF between 60 - 65 %. 6. The right ventricle is normal in size. 7. LA is midly dilated 29-33ml/m2. 8. The right atrium is normal in size. 9. Interatrial and interventricular septum intact. 10. There is mild aortic valve sclerosis. 11. There is mild aortic regurgitation. 12. Peak/mean gradient across the Aortic Valve is 14.45mmHg / 6.11mmHg. 13. The mitral valve leaflets are mildly thickened. 14. Mild mitral annular calcification present. 15. There is trace to mild mitral regurgitation. 16. Mild tricuspid regurgitation present. 17. Right ventricular systolic pressure is normal at < 35 mmHg. 18. Trace/mild (physiologic) pulmonic regurgitation. 19. The aortic root size is normal. 20. Normal inferior vena cava with normal inspiratory collapse consistent with estimated right atrial pressure of 5 mmHg. 21. There is no pericardial effusion. PAPER BAG PRESS OPERATOR: Preeti Layton RDCS
--- NOTE | 2019-01-20 16:41 | US ---
EXAMINATION TYPE: US carotid duplex BILAT DATE OF EXAM: 01/17/2019 COMPARISON: 12/19/2016 CLINICAL HISTORY: 78-year-old female I65.43 carotid stenosis. TECHNIQUE: Carotid duplex ultrasound examination. Direct Doppler criteria was utilized. EXAM MEASUREMENTS: RIGHT: Peak Systolic Velocity (PSV) cm/sec ----- Right CCA: 95.5 ----- Right ICA: 165.0 ----- Right ECA: 148.6 ICA/CCA ratio: 1.7 RIGHT: End Diastole cm/sec ----- Right CCA: 0 ----- Right ICA: 31.8 ----- Right ECA: 0 LEFT: Peak Systolic Velocity (PSV) cm/sec ----- Left CCA: 73.8 ----- Left ICA: 115.9 ----- Left ECA: 150.9 ICA/CCA ratio: 1.5 LEFT: End Diastole cm/sec ----- Left CCA: 22.4 ----- Left ICA: 31.8 ----- Left ECA: 0 VERTEBRALS (direction of flow): Right Vertebral: Antegrade Left Vertebral: Antegrade Rhythm: Normal Bilateral scattered calcifications seen in the bilateral ICAs. IMPRESSION: Mildly elevated velocities in the distal right ICA could reflect a mild or moderate right ICA stenosi s or could be secondary to turbulence. Criteria for Assigning % of Stenosis / Diameter reduction (Estimation based on the indirect measurements of the internal carotid artery velocities (ICA PSV). 1. Normal (no stenosis)=ICA PSV < 125 cm/s: ratio < 2.0: ICA EDV<40 cm/s. 2. Less than 50% stenosis=ICA PSV < 125 cm/s: ratio < 2.0: ICA EDV<40 cm/s. 3. 50 to 69% stenosis=ICA PSV of 125 to 230 cm/s: ration 2.0 ? 4.0: ICA EDV 40-100 cm/s. 4. Greater than 70% stenosis to near occlusion= ICA PSV > 230 cm/s: ratio > 4.0: ICA EDV > 100 cm/s. 5. Near occlusion= ICA PSV velocities may be low or undetectable: variable ratio and ICA EDV. 6. Total occlusion=unable to detect flow.
== END | disposition home or self-care (01) ==
LOC: RADUSMAIN 14:23
PROVIDERS: ATTEND Internal Medicine
DX: I65.23 Occlusion and stenosis of bilateral carotid arteries (principal); I08.3 Combined rheumatic disorders of mitral, aortic and tricuspid valves
CPT/HCPCS: 93306; 93880

== ENCOUNTER → 2020-10-13 | Outpatient (CLI) | payer MEDICARE, OTHER | END | disposition home or self-care (01) | LOC: LABPAT 12:26 | PROVIDERS: ATTEND Orthopaedic Surgery | DX: M16.12 Unilateral primary osteoarthritis, left hip (principal); Z22.322 Carrier or suspected carrier of Methicillin resistant Staphylococcus aureus | CPT/HCPCS: 87070 ==

== ENCOUNTER → 2020-10-13 | Outpatient (CLI) | payer MEDICARE, OTHER ==
[2020-10-13 13:25] LABS: Appearance,Urine Cloudy (Clear); Bilirubin,Urine Negative (Negative); Blood,Urine Small (Negative); Color,Urine Yellow; Glucose,Urine (UA) Negative (Negative); Ketones,Urine Negative (Negative); Leukocyte Esterase,Urine Negative (Negative); Mucus,Urine Moderate /hpf; Nitrite,Urine Negative (Negative); Protein,Urine Trace (Negative); RBC,Urine 9 /hpf (0-5); Specific Gravity,Urine 1.025 (1.001-1.035); Squamous Epithelial Cell,Urine 8 /hpf (0-4); WBC,Urine 1 /hpf (0-5)
[2020-10-13 18:44] LABS: Basophils # (A) 0.05 X 10*3/uL (0.00-0.10); Basophils % (A) 0.9 %; Eosinophils # (A) 0.02 X 10*3/uL (0.04-0.35); Eosinophils % (A) 0.4 %; Lymphocytes % (A) 19.9 %; MCH 32.3 pg (27.0-32.0); MCHC 32.4 g/dL (32.0-37.0); MCV 99.5 fL (80.0-97.0); Mean Platelet Volume 9.6 fL (9.5-12.2); Monocytes # (A) 0.48 X 10*3/uL (0.20-1.00); Monocytes % (A) 8.7 %; Neutrophils # (A) 3.85 X 10*3/uL (1.80-7.70); Neutrophils % (A) 69.7 %; Platelet Count 283 X 10*3/uL (140-440); RBC 3.72 X 10*6/uL (4.10-5.20); RDW 12.2 % (11.5-14.5); WBC 5.52 X 10*3/uL (4.50-10.00)
[2020-10-13 19:39] LABS: INR 0.96 (0.90-1.11); Prothrombin Time 10.5 sec (9.9-11.9)
[2020-10-14 04:01] LABS: African American GFR (CKD) 105.9 (60.0-200.0); Albumin 4.2 g/dL (3.80-4.90); Albumin/Globulin Ratio 1.62 (1.60-3.17); Anion Gap 9.9 mmol/L (4.00-12.00); Calcium 8.7 mg/dL (8.7-10.3); Carbon Dioxide 24.1 mmol/L (21.6-31.8); Globulin 2.6 g/dL (1.6-3.3); Non-African American GFR(CKD) 91.4 (60.0-200.0); Potassium 4.3 mmol/L (3.5-5.5); Total Bilirubin 0.5 mg/dL (0.2-1.2); Total Protein 6.8 g/dL (6.2-8.2)
== END | disposition home or self-care (01) ==
LOC: LABWHC1 12:28
PROVIDERS: ATTEND Nurse Practitioner Family
DX: Z01.812 Encounter for preprocedural laboratory examination (principal)
CPT/HCPCS: 36415; 80053; 81001; 84443; 85025; 85610

== ENCOUNTER 2020-10-25 11:10 | Day surgery (SDC) | payer MEDICARE, OTHER ==
[2020-10-20 14:17] VITALS: BMI 21.6
--- NOTE | 2020-10-24 13:36 | HP ---
HISTORY AND PHYSICAL DATE OF SURGERY: 10/25/2020 Candy Maguire is an 79-year-old patient seen with symptomatic left hip osteoarthritis. After treatment options were discussed with her, she elected to proceed with direct anterior left total hip arthroplasty. Consent was obtained. Medical clearance was provided by Dr. Justin Machado. PAST MEDICAL HISTORY: Hypertension. PAST SURGICAL HISTORY: Tonsillectomy, cataract surgery, breast biopsy. DAILY MEDICATIONS: Crestor. ALLERGIES: NONE. SOCIAL HISTORY: She denies tobacco use. PHYSICAL EVALUATION OF THE LEFT HIP: She has very limited range of motion with severe pain. Positive hip impingement sign. Straight-leg raise negative. Distal neurovascular exam is intact. RADIOGRAPHS: Radiographs of the left hip reveal severe osteoarthritic changes. IMPRESSION: 1. Left hip osteoarthritis. 2. Hypertension. PLAN: Direct anterior left total hip arthroplasty. MMODL / IJN: [id number] /
[~2020-10-25 11:10] MED LIST changes: -ACETAMINOPHEN TAB 500 MG TAB PO ONE; +ACETAMINOPHEN TAB 500 MG TAB PO PRN; +HYDROmorphone 0.5 MG/0.5 ML SYRINGE IVP PRN; +LACTATED RINGERS 1,000 ML IV SCH; +LIDOCAINE 1% (10MG/ML) FOR IV START INTRADERMA PRN; -MELOXICAM 7.5 MG TAB PO ONE; +MELOXICAM 7.5 MG TAB PO PRN; +ONDANSETRON 4 MG/2 ML VIAL IVP ONE; +TRANEXAMIC ACID 1,000 MG in SODIUM CHLORIDE 0.9% 100 ML IVPB PRN; -TRANEXAMIC ACID 1,000 MG in SODIUM CHLORIDE 0.9% 50 ML IVPB ONE; -ceFAZolin IN SWFI 2 GM/20 ML SYRINGE IVP ONE; -fentaNYL (PF) 50 MCG/ML 2 ML AMP IV PRN
[2020-10-25] MEDS ORDERED: LABETALOL 5 MG/ML VIAL MDV ONE (12:14)
[2020-10-25] MEDS ORDERED: fentaNYL (PF) 50 MCG/ML 2 ML AMP ONE (12:14)
[2020-10-25] MEDS ORDERED: hydrALAZINE HCL 20 MG/ML 1 ML VIAL ONE (12:14)
[2020-10-25] MEDS ORDERED: SODIUM CHLORIDE 0.9% 100 ML BAG ONE (12:14)
[2020-10-25] MEDS ORDERED: MIDAZOLAM 2 MG/2 ML VIAL ONE (12:14)
[2020-10-25] MEDS ORDERED: diphenhydrAMINE 50 MG/ML 1 ML VIAL ONE (12:14)
[2020-10-25] MEDS ORDERED: PROPOFOL 10 MG/ML 20 ML VIAL IV ONE (12:14)
[2020-10-25] MEDS ORDERED: TRANEXAMIC ACID 1,000 MG/10 ML VIAL ONE (12:14)
[2020-10-25] MEDS ORDERED: ceFAZolin 1,000 MG in SODIUM CHLORIDE 0.9% 1,000 ML IRRIGATION ONE (12:18)
[2020-10-25] MEDS: ROPIVACAINE/EPI/CLONIDINE/KET 50 ML SYRINGE MISCELLANE PRN ×2 (12:52→13:42)
--- NOTE | 2020-10-25 14:08 | P.OP ---
Date of Procedure: 10/25/20 Preoperative Diagnosis: Left hip osteoarthritis Postoperative Diagnosis: Left hip osteoarthritis Procedure(s) Performed: Direct anterior left total hip arthroplasty Implants: 1. Depuy Corail size 10 high offset press-fit femoral stem 2. Depuy pinnacle 54 mm press-fit multi hole acetabular shell 3. Depuy pinnacle neutral polyethylene acetabular liner 36 mm ID 54 mm OD 4. Biolox delta ceramic femoral head +1.5 36 mm Anesthesia: local, spinal Surgeon: George Holguin Immunopathologist #1: Napoleon Guerra Estimated Blood Loss (ml): 80 Pathology: other (Femoral head) Condition: stable Disposition: PACU Indications for Procedure: 79-year-old patient seen with symptomatic left hip osteoarthritis. After treatment options were discussed, she elected to proceed with direct anterior total hip arthroplasty. Operative Findings: see description of procedure Description of Procedure: The patient was taken to the operative suite. Patient underwent a spinal anesthetic by the department of anesthesia. Patient was then transferred to the [place] table. Patient was given preoperative IV antibiotics and TXA. Both lower extremities were placed in standard leg spars. The hip was then prepped and draped in the normal sterile orthopedic fashion. A standard anterior incision was made beginning 3 cm lateral and 1 cm distal to the ASIS extending 10 cm. Dissection was then carried down through the subcutaneous soft tissues down to the fascia overlying the tensor fascia ramon. An incision was now made through the fascia. Careful dissection was taken down exposing the tensor fascia ramon muscle. A Cobra retractor was now placed along the medial femoral neck and a second one along the lateral femoral neck. The venous circumflex vessels were now identified, cauterized and clipped. We identified the anterior hip capsule. An incision was made through the hip capsule along the lateral border. I performed a partial anterior capsulectomy. Retractors were now placed around the femoral neck itself. A femoral neck cut was now made with a sagittal saw. It was completed with an osteotome at the lateral neck area. The femoral head was now removed without difficulty. The extremity was now rotated to 60 of external rotation. It was locked in position. Residual labrum was now debrided out. Serial reaming was performed of the acetabulum while Wilfredo back holding an anterior retractor for exposure. Once we reached the appropriate size and a trial was position and fit nicely. The appropriate size was now chosen opened and made available. It was introduced into the acetabulum without difficulty. The C-arm/fluoroscopy was now brought into the operative field. We made sure we had a true AP pelvic view. We now under direct C-arm/fluoroscopy introduced into the acetabular component with appropriate version and inclination. I held the cup in appropriate position well Wilfredo JOEL used a mallet to seat the acetabular component. I noted the component now to be well seated and stable. Acetabular cup introduce her was removed. The C-arm was pulled back. An appropriate liner was introduced and clicked into position. It was felt to be stable. At this point retractors were removed. The extremity was now placed into 140 external rotation with no traction. The leg was now dropped to the ground and adducted. Appropriate retractors were now positioned along the proximal femur. We also placed our femoral look into position. Additional capsular releasing was performed to gain access to the proximal femur. We now used a box osteotome. A canal finder was now utilized. Serial broaching was now performed with the assistance of Wilfredo JOEL tapping the broaches down with a mallet while held the broach in appropriate rotation and position. This was done until we reached the appropriate size with good overall rotational stability. Appropriate calcar planing was performed. A trial head/neck was placed into position. The hip was now reduced. The C- arm/fluoroscopy was brought back into the operative field. I see any. Pelvis demonstrating reasonable alignment. The trial components appeared well positioned and appropriately sized. The C-arm/fluoroscopy was pulled back. Retractors were repositioned and the hip was dislocated. The leg was again taken down to the ground and adducted. Appropriate retractors were repositioned as well as the femoral hook. All trial components were removed. The femoral implant was opened along with the femoral head. The femoral implant was introduced on the appropriate handle into our pre-broached area. I held the component position well Wilfredo JOEL used a mallet to seat the femoral component. The femoral component was now noted to be well seated and stable.. The femoral head was introduced with good positioning and fixation noted. Retractors were now removed. The hip was now reduced. There appeared be good positioning of the hip confirmed on intraoperative fluoroscopy. Spot films were obtained to document this. A second gram of TXA was given. The deep and superficial soft tissues were infiltrated with local analgesic. Bipolar cautery had been utilized intermittently through the procedure for hemostasis. The wound was irrigated copiously with pulse lavage mechanical irrigation. The fascia was repaired with Vicryl suture. The subcutaneous soft tissues were repaired in layers with Vicryl suture. The skin was approximated with pernio/Dermabond. Sterile dressings were applied. Patient was then awakened, transferred to a bed and taken to recovery in stable condition. Wilfredo JOEL assisted with the complex procedure.
[2020-10-25] MEDS ORDERED: HYDROmorphone 0.2 MG/1 ML SYRINGE IVP PRN (14:09)
[2020-10-25] MEDS ORDERED: HYDROmorphone 0.5 MG/0.5 ML SYRINGE IVP PRN ×2 (14:09)
[2020-10-25] MEDS ORDERED: HYDROcodone/APAP 5-325MG 1 EACH TAB PO PRN (14:09)
[2020-10-25] MEDS ORDERED: NALOXONE 0.4 MG/ML 1 ML VIAL IV PRN (14:09)
[2020-10-25] MEDS ORDERED: ONDANSETRON 4 MG/2 ML VIAL IVP PRN (14:09)
--- NOTE | 2020-10-25 14:13 | XR ---
Fluoroscopy History: LEFT ANTERIOR HIP 10 SEC FLUORO, 2 IMAGES SCANNED
[2020-10-25] MEDS ORDERED: LACTATED RINGERS 1,000 ML IV SCH (14:15)
[2020-10-25] MEDS ORDERED: fentaNYL (PF) 50 MCG/ML 2 ML AMP IVP ONE ×4 (14:42→16:21)
[2020-10-25] MEDS ORDERED: LACTATED RINGERS 1,000 ML IV ONE (15:25)
[2020-10-25 17:01] VITALS: RESP 18
[2020-10-25] MEDS: SENNOSIDES-DOCUSATE SODIUM 1 EACH TAB PO SCH ×2 (20:36→22:32)
[2020-10-26 04:24] VITALS: PULSE 85
[2020-10-26 07:49] VITALS: BP 127/64; TEMP 98.9
[2020-10-26] MEDS: HYDROcodone/APAP 5-325MG 1 EACH TAB PO PRN ×2 (07:50→14:24)
[2020-10-26] MEDS ORDERED: FAMOTIDINE 20 MG TAB PO SCH (09:00)
[2020-10-26] MEDS ORDERED: ENOXAPARIN 40 MG/0.4 ML SYRINGE SQ SCH (09:00)
--- NOTE | 2020-10-26 10:58 | P.PN ---
Subjective Progress Note Date: 10/26/20 Principal diagnosis: Status post direct anterior left total hip arthroplasty Patient evaluated today bedside, she is ambulating in her room with a walker. She did very well with physical therapy. Her pain is well-controlled at this time. She's having no acute difficulties. She denies any headaches, lightheadedness, chest pain or shortness of breath. Objective - Vital Signs Vital signs: Vital Signs Temp 98.9 F 10/26/20 07:47 Pulse 85 10/26/20 08:00 Resp 18 10/26/20 08:00 BP 127/64 10/26/20 07:47 Pulse Ox 98 10/26/20 07:47 Intake & Output 10/25/20 10/26/20 10/26/20 18:59 06:59 18:59 Intake Total 1051 Output Total 80 0 Balance 971 0 Weight 53 kg Intake: IV 1051 Output: Urine 0 0 Estimated Blood Loss 80 Other: Voiding Method Toilet Toilet # Voids 6 1 # Bowel Movements 0 - Exam Left lower extremity: Incision is clean, dry, and intact. The foam tape tape is in good condition. There is minimal soft tissue swelling and ecchymosis surrounding the medial and lateral aspects of the incision. Calf is soft, no tenderness with palpation. Plantar flexion, dorsiflexion, EHL, FHL are intact. Sensory exam to light touch throughout the extremity is intact, dorsal pedis pulses 2+. Assessment and Plan Assessment: Status post direct anterior left total hip arthroplasty Plan: Pain control, plan for discharge on [place] 5 mg/325 mg. Okay to also use [id number] Tylenol DVT prophylaxis, aspirin 81 mg twice a day Wound care instructions were discussed Encourage incentive spirometer Home therapy and nursing after discharge Medical recommendations Discharge planning: Plan for discharge home today Time with Patient: Less than 30
--- NOTE | 2020-10-26 11:08 | P.DS ---
Providers Date of admission: 10/25/2020 Expected date of discharge: 10/26/20 Attending physician: George Rothman Consults: 10/25/20 14:09 Consult Physician Routine Consulting Provider: Justin Machado Reason/Comments: Medical management Do you want consulting provider notified?: Yes Primary care physician: Justin Machado Hospital Course: Date of admission: 10/25/2020 Date of discharge: 10/26/2020 Admission diagnosis: Status post direct anterior left total hip arthroplasty Discharge diagnosis: Same Attending physician: Dr. rothman Surgical procedures: Left total hip arthroplasty Brief history: Patient is a 79-year-old female with a history of progressive primary left hip osteoarthritis. At this point patient has failed conservative treatment measures and has opted to proceed with a elective direct anterior left total hip arthroplasty. Hospital course: Details of patient's surgery can be found in operative report. Patient tolerated the procedure well and was subsequently transported to orthopedic floor. Patient's orthopeidc and medical care was provided daily. Patient had daily laboratory tests performed for evaluation of overall blood counts. Patient had daily physical therapy to include strengthening range of motion as well as education with walker ambulation. Patient was treated with Lovenox for their postoperative DVT prophylaxis during their inpatient stay. Patient was noted to have a relatively uneventful postoperative course. Patient reported satisfactory pain control with oral pain medications by postoperative day 0. Patient showed satisfactory progress with physical therapy. Patient moved steadily through the program and had no difficulty meeting the goals by postoperative day 1. Given patient's otherwise satisfactory course and having met physical therapy goals, plan is to discharge patient home on postoperative day 1. Discharge condition/disposition: Patient will be discharged home in stable condition. Discharge medications: Instructions are given on resumption of patient's normal daily medications per primary care recommendation, in addition patient will be prescribed [place] 5 mg/325 mg, Colace 100 mg, aspirin 81 mg. Discharge instructions: 1. Wound care and infection precautions, keep incision dry and covered while showering, no lotions, creams, moisturizers. No soaking, tubs, pools, hottubs. Do not scrub over the incision. 2. Weight-bear as tolerated with walker / cane until follow-up. 3. Ice and elevate when necessary. Do not exceed 20 minutes per hour with ice pack. 4. Utilize compression sleeve until seen at first follow up appointment. 5. Visiting nursing care. 6. Home physical therapy including home CPM. 7. Pain meds and anticoagulants per prescription. 8. Pain medication has potential to cause constipation. Increase oral fluid and fiber intake. Contact primary care provider if you have not had a bowel movement within 48 hours after discharge 9. No anti-inflammatory medication until discussed at first post operative visit, this including Motrin, Aleve, Mobic, Diclofenac. 10. Follow up in office at 2 weeks postop with Wilfredo Guerra PA-C/Juan Diez 11. Follow up with your primary care doctor 7-10 days after discharge. 12. Contact [facility] with any questions, . Procedures: Direct anterior left total hip arthroplasty Patient Condition at Discharge: Good Plan - Discharge Summary Discharge Rx Participant: Yes New Discharge Prescriptions: New Aspirin [Adult Low Dose Aspirin EC] 81 mg PO BID #60 tablet. Doccassidy [Colace] 100 mg PO DAILY #30 capsule HYDROcodone/APAP 5-325MG [[place] 5-325] 1 tab PO Q6HR PRN 3 Days #28 tab PRN Reason: Pain No Action Rosuvastatin Calcium [Crestor] 5 mg PO HS traMADol HCl [Ultram] 50 mg PO Q6H PRN #28 tab PRN Reason: Pain Discharge Medication List Rosuvastatin Calcium [Crestor] 5 mg PO HS 11/29/17 [History] traMADol HCl [Ultram] 50 mg PO Q6H PRN #28 tab 12/14/17 [Rx] Aspirin [Adult Low Dose Aspirin EC] 81 mg PO BID #60 tablet. 10/26/20 [Rx] Docusate [Colace] 100 mg PO DAILY #30 capsule 10/26/20 [Rx] HYDROcodone/APAP 5-325MG [[place] 5-325] 1 tab PO Q6HR PRN 3 Days #28 tab 10/26/20 [Rx] Follow up Appointment(s)/Referral(s): Napoleon Guerra PAC [PHYSIC[facility] [employer] [facility] [facility]] - 2 Weeks Activity/Diet/Wound Care/Special Instructions: Orthopedic Discharge Instructions: 1. Wound care and infection precautions, keep incision dry and covered while showering, no lotions, creams, moisturizers. No soaking, pools, hot tubs. Do not scrub over incision. 2. Weight-bear as tolerated with walker / cane until follow-up. 3. Ice and elevate when necessary. Do not exceed 20 minutes per hour with ice pack. 4. Utilize compression sleeve until seen at first follow up appointment. 5. Pain meds and anticoagulants per prescription. 6. Pain medication has potential to cause constipation. Increase oral fluid and fiber intake. Contact primary care provider if you have not had a bowel movement within 48 hours after discharge. 7. No anti-inflammatory medication until discussed at first post operative visit, this including Motrin, Aleve, Mobic, Diclofenac. 8. Follow up in office at 2 weeks postop with Wilfredo Guerra PA-C/Juan Vences PA-C 9. Follow up with your primary care doctor 7-10 days after discharge. 10. Contact [facility] with any questions, . Wound care instructions: 1. Okay to remove foam dressing on 10/28/2020 2. Keep incision dry and covered while showering Discharge Disposition: HOME WITH HOME HEALTH SERVICES
[2020-10-26 11:18] LABS: Basophils # (A) 0.04 X 10*3/uL (0.00-0.10); Basophils % (A) 0.5 %; Eosinophils # (A) 0.01 X 10*3/uL (0.04-0.35); Eosinophils % (A) 0.1 %; HCT 33.2 % (37.2-46.3); HGB 10.5 g/dL (12.0-15.0); Lymphocytes # (A) 0.84 X 10*3/uL (0.90-5.00); Lymphocytes % (A) 10.6 %; MCH 31.3 pg (27.0-32.0); MCHC 31.6 g/dL (32.0-37.0); MCV 99.1 fL (80.0-97.0); Mean Platelet Volume 9.6 fL (9.5-12.2); Monocytes # (A) 0.56 X 10*3/uL (0.20-1.00); Monocytes % (A) 7.1 %; Neutrophils # (A) 6.44 X 10*3/uL (1.80-7.70); Neutrophils % (A) 81.2 %; Platelet Count 244 X 10*3/uL (140-440); RBC 3.35 X 10*6/uL (4.10-5.20); RDW 12.5 % (11.5-14.5); WBC 7.93 X 10*3/uL (4.50-10.00)
--- NOTE | 2020-10-26 13:30 | P.CONS ---
History of Present Illness - Reason for Consult Consult date: 10/26/20 - Chief Complaint Left hip arthroplasty - History of Present Illness History of present illness 79 years old female patient of Dr. Machado with past medical history of hyperlipidemia, white coat hypertension, osteoarthritis comes in for an elective left knee arthroplasty. Patient has difficulty ambulating since last winter when she went to [place]. She is currently using cane to help her ambulate. Patient was seen postoperatively, denies any pain or shortness of breath or chest pain. Patient denies any nausea or vomiting. Patient denies any history of pulmonary embolism in the past patient denies any history of DVT in the past. She is independent and lives alone. Vitals reviewed afebrile pulse 85 respiratory rate 18 blood pressure 127/64 oxygen saturation 98% on room air. Labs suggestive of hemoglobin 10.5 MCV 99.1 ROS Constitutional: Denies chills, Denies fever, Denies lethargy, Denies malaise, Denies poor appetite, Denies weakness, Denies weight loss Eyes: denies decreased vision, denies diplopia, denies discharge, denies pain Ears: deny: decreased hearing Ears, nose, mouth and throat: Denies dental pain, Denies headache, Denies nasal discharge, Denies nose pain Cardiovascular: Denies chest pain, Denies decreased exercise tolerance, Denies edema, Denies high blood pressure, Denies irregular heart beat, Denies palpitations, Denies paroxysmal nocturnal dyspnea, Denies rapid heart beat, Denies shortness of breath Respiratory: Denies congestion, Denies cough, Denies cough with sputum, Denies dyspnea, Denies home oxygen, Denies wheezing Gastrointestinal: Denies abdominal pain, Denies change in bowel habits, Denies coffee ground emesis, Denies early satiety, Denies excessive gas, Denies heartburn, Denies hematemesis, Denies hematochezia, Denies loss of appetite, Denies nausea, Denies vomiting Genitourinary: Denies dysuria, Denies flank pain, Denies kidney stones, Denies menorrhagia, Denies urgency, Denies urinary frequency Musculoskeletal: Endorses gait dysfunction, endorses limitation of motion, Denies morning stiffness, Denies muscle cramps endorses left hip pain Integumentary: Denies rash, Denies wounds, Denies brittle nails, Denies change in hair/nails, Denies darkening of skin Neurological: Denies balance difficulties, Denies change in speech, Denies double vision, Denies gait dysfunction, Denies loss of vision, Denies motor disturbance, Denies numbness, Denies paralysis, Denies paresthesias, Denies seizures Psychiatric: Denies anxiety, Denies depression Endocrine: Denies excessive sweating, Denies excessive thirst, Denies high blood sugars, Denies palpitations Hematologic/Lymphatic: Denies easy bruising, Denies lymphadenopathy Social history Patient lives alone and uses a cane to walk around. Nonsmoker nonalcoholic use. No history of illicit drug use Family history Mother at age of 90 from old age Father at the age of 80 from heart issues Sr. of kidney cancer at age 50 No brother Patient has 3 children no medical problems Physical exam - Constitutional General appearance: cooperative, no acute distress, obese - EENT Eyes: anicteric sclerae, PERRLA, normal appearance ENT: hearing grossly normal - Neck Neck: no lymphadenopathy, normal ROM, no other, no rigidity, no stridor, no thyromegaly - Respiratory Respiratory: bilateral: CTA, negative: diminished, dullness, rales, rhonchi - Cardiovascular Rhythm: regular Heart sounds: normal: S1, S2 Abnormal Heart Sounds: no systolic murmur, no diastolic murmur, no rub, no S3 Gallop, no S4 Gallop, no click, no other - Gastrointestinal General gastrointestinal: normal bowel sounds, soft - Integumentary Integumentary: no rash - Neurologic Neurologic: CNII-XII intact - Musculoskeletal Musculoskeletal: Left hip has dressing with no oozing or drainage. No swelling noted. Varicose veins noted up to the hip, strength equal bilaterally - Psychiatric Psychiatric: A&O x's 3, appropriate affect Assessment and plan #1 Postoperative day one left total hip arthroplasty pain control per primary team. Incentive spirometry for pulmonary prophylaxis. Aspirin 81 twice a day for DVT prophylaxis #2 hyperlipidemia continue rosuvastatin 5 mg by mouth daily at bedtime. The patient has proximal leg weakness on muscle cramps may need to be discontinued. #3 white coat hypertension not on any blood pressure medications are pressure controlled currently in the hospital #4 acute blood loss anemia expected outcome of the surgery. Hemoglobin 10. Recommend ferrous sulfate once a day #5 CODE STATUS full code #6 DVT prophylaxis and encourage ambulation with aspirin 81 twice a day Thank you for the consult. I'll be happy to assist in patient's medical needs as patient is in the hospital Past Medical History Past Medical History: Hyperlipidemia, Hypertension, Osteoarthritis (OA) Additional Past Medical History / Comment(s): left leg varicose veins, no longer needs BP med., probably "white coat syndrome" per pt. History of Any Multi-Drug Resistant Organisms: None Reported Past Surgical History: Breast Surgery, Joint Replacement, Tonsillectomy Additional Past Surgical History / Comment(s): benign breast bx, archie cataracts, colonoscopies, right knee replaced Past Anesthesia/Blood Transfusion Reactions: Previous Problems w/ Anesthesia, Postoperative Nausea & Vomiting (PONV) Additional Past Anesthesia/Blood Transfusion Reaction / Comm: states "sensitive" to anesthesia, "took several days to clear my system", PONV only once Past Psychological History: No Psychological Hx Reported Smoking Status: Never smoker Past Alcohol Use History: Occasional Additional Past Alcohol Use History / Comment(s): Patient is a lifelong nonsmoker. She states she drinks 2-3 alcoholic beverages per week. Past Drug Use History: None Reported - Past Family History Sister(s) Family Medical History: Cancer Additional Family Medical History / Comment(s): Patient had one sister that at 50 years of age from kidney cancer. No brothers. Father Additional Family Medical History / Comment(s): Father at age 86 from complications of a lung fungus. Mother Additional Family Medical History / Comment(s): Mother at age 91 from old age. Patient has 3 children with no major medical problems. Medications and Allergies Home Medications Medication Instructions Recorded Confirmed Type Rosuvastatin Calcium [Crestor] 5 mg PO HS 11/29/17 10/25/20 History traMADol HCl [Ultram] 50 mg PO Q6H PRN #28 tab 12/14/17 10/25/20 Rx Aspirin [Adult Low Dose Aspirin EC] 81 mg PO BID #60 tablet. 10/26/20 Rx Docusate [Colace] 100 mg PO DAILY #30 capsule 10/26/20 Rx HYDROcodone/APAP 5-325MG [[place] 1 tab PO Q6HR PRN 3 Days #28 tab 10/26/20 Rx 5-325] Allergies Allergy/AdvReac Type Severity Reaction Status Date / Time codeine Allergy Unknown Verified 08/23/21 11:28 hydromorphone [From Dilaudid] Allergy Hallucinations Verified 10/25/20 11:28 for a few days after taking Physical Exam Vitals: Vital Signs Temp Pulse Resp BP Pulse Ox 10/26/20 08:00 85 18 10/26/20 07:47 98.9 F 85 18 127/64 98 10/26/20 01:40 98.5 F 85 18 134/62 93 L 10/25/20 20:00 98.3 F 77 18 109/51 97 10/25/20 18:15 85 99/49 10/25/20 18:00 83 117/57 10/25/20 17:45 85 130/62 10/25/20 17:30 82 133/62 10/25/20 17:17 84 18 10/25/20 17:15 80 152/63 10/25/20 17:01 98.9 F 84 18 157/65 99 10/25/20 16:30 79 16 147/67 100 10/25/20 16:15 78 16 163/67 99 10/25/20 16:00 80 14 151/65 100 10/25/20 15:45 80 14 123/60 97 10/25/20 15:30 79 16 144/64 98 10/25/20 15:15 82 16 150/67 99 10/25/20 15:00 80 16 154/70 98 10/25/20 14:45 84 14 158/70 99 10/25/20 14:30 82 16 161/68 100 10/25/20 14:21 97.4 F L 81 16 181/70 99 10/25/20 11:29 98.5 F 94 16 194/82 98 Intake and Output 10/25/20 10/26/20 10/26/20 22:59 06:59 14:59 Output Total 0 0 Balance 0 0 Output: Urine 0 0 Other: Voiding Method Toilet Toilet # Voids 6 1 # Bowel Movements 0 Weight 53 kg Results CBC & Chem 7: 10/26/20 07:20
== END 2020-10-26 14:51 | disposition home health service (06) ==
LOC: OR 11:10 → 4SSUR 16:10 → OR 10-26 14:51
PROVIDERS: ATTEND Orthopaedic Surgery
DX: M16.12 Unilateral primary osteoarthritis, left hip (principal); I10 Essential (primary) hypertension; E78.5 Hyperlipidemia, unspecified; Z79.899 Other long term (current) drug therapy
CPT/HCPCS: 97161; 97165; 85025; 88300; 73501; 27130; C1776; J2250; J0360; J1200; J0690 ×3; J2405; J1650; J3010; J2704; 36415; 86850; 86900; 86901

== ENCOUNTER → 2021-02-28 | Outpatient (CLI) | payer MEDICARE, OTHER | END | disposition home or self-care (01) | LOC: LABPAT 11:00 | PROVIDERS: ATTEND Orthopaedic Surgery | DX: Z01.812 Encounter for preprocedural laboratory examination (principal); M16.11 Unilateral primary osteoarthritis, right hip | CPT/HCPCS: 87070 ==

== ENCOUNTER → 2021-03-15 | Outpatient (CLI) | payer MEDICARE, OTHER ==
--- NOTE | 2021-03-15 18:21 | US ---
EXAMINATION TYPE: US venous doppler duplex LE RT DATE OF EXAM: 03/15/2021 5:20 PM COMPARISON: NONE CLINICAL HISTORY: R60.0 Localized edema. Right leg swelling with pain post hip replacement on 2 SIDE PERFORMED: Right TECHNIQUE: The lower extremity deep venous system is examined utilizing real time linear array sonog nurys with graded compression, doppler sonography and color-flow sonography. VESSELS IMAGED: Common Femoral Vein Deep Femoral Vein Greater Saphenous Vein * Femoral Vein Popliteal Vein Small Saphenous Vein * Proximal Calf Veins (* superficial vessels) Right lower extremity: Grayscale, color doppler, spectral doppler imaging performed of the deep veins of the lower extremities. There is normal flow, compressibility, vascular waveforms. Peripheral arterial vascular disease noted. IMPRESSION: 1. No sonographic findings to suggest acute deep vein thrombosis at this time. 2. Peripheral arterial vascular disease noted in the lower extremity.
== END | disposition home or self-care (01) ==
LOC: RADUSWWP 16:49
PROVIDERS: ATTEND Internal Medicine Geriatric Medicine
DX: I73.9 Peripheral vascular disease, unspecified (principal); R60.0 Localized edema

== ENCOUNTER → 2023-02-08 | Outpatient (CLI) | payer MEDICARE, OTHER ==
--- NOTE | 2023-02-09 09:09 | XR ---
EXAMINATION TYPE: XR thoracic spine 3 views complete, XR lumbar spine 3V DATE OF EXAM: 02/08/2023 Comparison: None Clinical History: 82-year-old female Back pain Findings: Thoracic spine: Mild S-shaped scoliotic curvature. 12 thoracic vertebral bodies. All pedicles are visualized. There i s an accentuated kyphosis at the thoracolumbar junction. Diffuse osteopenia. Vertebral body heights a re preserved and alignment is maintained. Mild degenerative disc disease midthoracic spine. Lumbar spine: There is a compensatory dextroconvex curvature of the lumbar spine. Osteopenia. Hypertrophic facet ar thropathy throughout. There is superior endplate deformity involving L2 and L3 vertebral bodies with up to 40% overall height loss. There may be mild retropulsion into the ventral spinal canal at the L3 level. Grade 1 retrolisthesis L1-L2. Mild to moderate degenerative disc disease thoracolumbar juncti on and upper lumbar spine. Impression: Thoracic spine: 1. Mild S-shaped scoliotic curvature. Accentuated kyphosis at the thoracolumbar junction. 2. Mild degenerative disc disease midthoracic spine. 3. No vertebral compression collapse. Lumbar spine: 4. There is a compensatory dextroconvex curvature of the lumbar spine. 5. Superior endplate fractures involving L2 and L3 vertebral bodies with up to 40% overall height los s. These are age indeterminate, probably osteoporotic injuries and further clinical assessment is rec ommended. There is mild retropulsion into the ventral spinal canal at L3. 6. Hypertrophic facet arthropathy throughout. Degenerative grade 1 retrolisthesis L1-L2.
== END | disposition home or self-care (01) ==
LOC: RADXRMAIN 13:12
PROVIDERS: ATTEND Internal Medicine Geriatric Medicine
DX: M43.16 Spondylolisthesis, lumbar region (principal); M47.816 Spondylosis without myelopathy or radiculopathy, lumbar region; M51.36 Other intervertebral disc degeneration, lumbar region
CPT/HCPCS: 72072; 72100

== ENCOUNTER 2023-03-15 22:18 | Inpatient (IN) | payer MEDICARE, OTHER ==
[2023-03-15 22:34] LABS: Glucose,Whole Blood 96 mg/dL (70-110)
--- NOTE | 2023-03-15 22:34 | ED ---
Altered Mental Status HPI - General Chief Complaint: Altered Mental Status Stated Complaint: AMS Time Seen by Provider: 03/15/23 22:27 Source: EMS Mode of arrival: EMS Limitations: altered mental status - History of Present Illness Initial Comments: This patient is an 82-year-old woman brought to have evaluation after she was found lying on the floor of her residence. Patient reportedly had not been observed by neighbors for couple of days and when they went to check they found her lying on the floor. The patient not able to explain how she ended up there. The patient is able to answer simple questions, stating that she is not having any trouble with breathing. Denies pain. She is not able to give any details of the past couple of days and does appear to be confabulating. She was able to accurately state that she has an MRI coming up this weekend for chronic back pains. MD Complaint: altered mental status Onset/Timin -: days(s) Severity: moderate Associated Symptoms: denies other symptoms - Related Data Home Medications Medication Instructions Recorded Confirmed Alendronate Sodium [Fosamax] 70 mg PO Q7D 03/16/23 03/16/23 Donepezil [Aricept] 10 mg PO HS 03/16/23 03/16/23 Previous Rx's Medication Instructions Recorded Acetaminophen Tab [Tylenol] 650 mg PO Q6HR PRN tab 03/19/23 Enoxaparin [Lovenox] 30 mg SQ DAILY each 03/19/23 Folic Acid 1 mg PO DAILY@1200 tab 03/19/23 Mag Hydrox/Al Hydrox/Simeth 15 ml PO Q6HR PRN ml 03/19/23 [Maalox] Multivitamins, Thera [Multivitamin 1 each PO DAILY@1200 tab 03/19/23 (formulary)] Pantoprazole [Protonix] 40 mg PO AC-BRKFST tab 03/19/23 Thiamine [Vitamin B-1] 100 mg PO BID-W/MEALS tab 03/19/23 amLODIPine [Norvasc] 10 mg PO DAILY tab 03/19/23 Allergies Allergy/AdvReac Type Severity Reaction Status Date / Time codeine Allergy Unknown Verified 03/15/23 22:25 hydromorphone [From Dilaudid] Allergy Hallucinations Verified 03/15/23 22:25 for a few days after taking Review of Systems ROS Statement: Those systems with pertinent positive or pertinent negative responses have been documented in the HPI. ROS Other: All systems not noted in ROS Statement are negative. Limitations: ROS unobtainable due to patients medical condition Past Medical History Past Medical History: Hyperlipidemia, Hypertension Additional Past Medical History / Comment(s): left leg varicose veins History of Any Multi-Drug Resistant Organisms: None Reported Past Surgical History: Breast Surgery, Tonsillectomy Additional Past Surgical History / Comment(s): benign breast bx, archie cataracts, fatty tumor groin, colonoscopy Past Anesthesia/Blood Transfusion Reactions: Previous Problems w/ Anesthesia, Postoperative Nausea & Vomiting (PONV) Additional Past Anesthesia/Blood Transfusion Reaction / Comment(s): states "sensitive" to anesthesia, "took several days to clear my system", an anesthesia "cocktail" caused nausea Past Psychological History: No Psychological Hx Reported Past Alcohol Use History: Occasional Past Drug Use History: None Reported - Past Family History Sister(s) Family Medical History: Cancer Additional Family Medical History / Comment(s): Patient had one sister that at 50 years of age from kidney cancer. No brothers. Father Additional Family Medical History / Comment(s): Father at age 86 from complications of a lung fungus. Mother Additional Family Medical History / Comment(s): Mother at age 91 from old age. Patient has 3 children with no major medical problems. General Exam Limitations: altered mental status General appearance: alert, in no apparent distress Head exam: Present: atraumatic, normocephalic Eye exam: Present: normal appearance, PERRL, EOMI. Absent: scleral icterus, conjunctival injection, nystagmus ENT exam: Present: mucous membranes dry Neck exam: Present: normal inspection, full ROM. Absent: tenderness Respiratory exam: Present: normal lung sounds bilaterally. Absent: respiratory distress, wheezes, rales, rhonchi, stridor Cardiovascular Exam: Present: regular rate, normal rhythm, normal heart sounds. Absent: systolic murmur, diastolic murmur, rubs, gallop GI/Abdominal exam: Present: soft. Absent: distended, tenderness, guarding, rebound, rigid, mass Extremities exam: Present: normal inspection, normal capillary refill. Absent: pedal edema, calf tenderness Back exam: Present: normal inspection. Absent: vertebral tenderness Neurological exam: Present: alert, CN II-XII intact. Absent: oriented X3 (Patient is disoriented to time.), motor sensory deficit Skin exam: Present: warm, dry, intact, normal color. Absent: rash Course Vital Signs 03/15/23 03/16/23 03/16/23 22:22 01:47 03:06 Temperature 98.8 F Pulse Rate 82 75 71 Respiratory 18 16 16 Rate Blood Pressure 186/93 171/82 163/78 O2 Sat by Pulse 100 96 96 Oximetry 03/16/23 03/16/23 03/16/23 05:39 18:00 19:00 Temperature 98.2 F Pulse Rate 73 75 Respiratory 16 18 Rate Blood Pressure 154/75 189/75 188/80 O2 Sat by Pulse 97 99 Oximetry 03/16/23 19:55 Temperature Pulse Rate 76 Respiratory 18 Rate Blood Pressure 187/74 O2 Sat by Pulse 98 Oximetry Medical Decision Making - Medical Decision Making The patient had CT of the brain which I interpreted as negative for acute bony injury or intracranial hemorrhage The patient had chest x-ray which I interpreted as negative for acute bony injury, pneumothorax, infiltrate. The patient had pelvis x-ray which I interpreted as showing what appeared to be intact bilateral hip replacement, no acute bony injury This patient is an 82-year-old woman who was found at home, down, and with some dementia versus delirium. At this point the patient will be admitted for hydration, and then to consider placement. The patient's son did arrive and the results and treatment plan discussed, and he states that he may need to look into are relocating the patient closer to his home which is couple of hours away. Was pt. sent in by a medical professional or institution (, PA, [employer], urgent care, hospital, or [place] [facility] facility...) When possible be specific @ -[No] Did you speak to anyone other than the patient for history (EMS, parent, family, police, friend...)? What history was obtained from this source @ -[EMS did contribute some history. The patient's son did arrive later and provided additional history Did you review nursing and triage notes (agree or disagree)? Why? @ -[I reviewed and agree with nursing and triage notes] Were old charts reviewed (outside hosp., previous admission, EMS record, old EKG, old radiological studies, urgent care reports/EKG's, [place] [facility] facility records)? Report findings @ -[No old charts were reviewed] Differential Diagnosis (chest pain, altered mental status, abdominal pain women, abdominal pain men, vaginal bleeding, weakness, fever, dyspnea, syncope, headache, dizziness, GI bleed, back pain, seizure, CVA, palpatations, mental health, musculoskeletal)? @ -[Differential Altered Mental Status: Hypoglycemia, DKA, hypercapnia, ETOH, overdose, CO poisoning, trauma, myxedema coma, HTN encephalopathy, infection, encephalitis, psychosis, intercranial hemorrhage, hepatic encephalopathy, meningitis, CVA, this is not meant to be an all-inclusive list EKG interpreted by me (3pts min.). @ -[I interpreted As above] X-rays interpreted by me (1pt min.). @ -I interpreted as above CT interpreted by me (1pt min.). @ -[I interpreted as above U/S interpreted by me (1pt. min.). @ -[None done] What testing was considered but not performed or refused? (CT, X-rays, U/S, labs)? Why? @ -[None] What meds were considered but not given or refused? Why? @ -[None] Did you discuss the management of the patient with other professionals (professionals i.e. , PA, [employer], lab, RT, psych nurse, older adult social work specialist, corn husker, teacher, chief informatics officer, nurse case manager)? Give summary @ -[No] Was smoking cessation discussed for >3mins.? @ -[No] Was critical care preformed (if so, how long)? @ -[No] Were there social determinants of health that impacted care today? How? (Homelessness, low income, unemployed, alcoholism, drug addiction, transportation, low edu. Level, literacy, decrease access to med. care, fci, rehab)? @ -[No] Was there de-escalation of care discussed even if they declined (Discuss DNR or withdrawal of care, Hospice)? DNR status @ -[No] What co-morbidities impacted this encounter? (DM, HTN, Smoking, COPD, CAD, Cancer, CVA, ARF, Chemo, Hep., AIDS, mental health diagnosis, sleep apnea, morbid obesity)? @ -[None] Was patient admitted / discharged? Hospital course, mention meds given and route, prescriptions, significant lab abnormalities, going to OR and other pertinent info. @ -[As above Undiagnosed new problem with uncertain prognosis? @ -[No] Drug Therapy requiring intensive monitoring for toxicity (Heparin, Nitro, Insulin, Cardizem)? @ -[No] Were any procedures done? @ -[No] Diagnosis/symptom? @ -[Acute altered mental status Acute mild dehydration Acute, or Chronic, or Acute on Chronic? @ -[Acute Uncomplicated (without systemic symptoms) or Complicated (systemic symptoms)? @ -[Uncomplicated Side effects of treatment? @ -[No] Exacerbation, Progression, or Severe Exacerbation? @ -[No] Poses a threat to life or bodily function? How? (Chest pain, USA, ME, pneumonia, PE, COPD, DKA, ARF, appy, cholecystitis, CVA, Diverticulitis, Homicidal, Suicidal, threat to staff... and all critical care pts) @ -[There is some risk to life associated with altered mental status, further evaluation is required - Lab Data Result diagrams: 03/19/23 06:26 03/19/23 06:26 Lab Results 03/15/23 03/15/23 03/15/23 Range/Units 22:32 22:33 22:33 WBC 7.7 (3.8-10.6) k/uL RBC 3.96 (3.80-5.40) m/uL Hgb 12.9 (11.4-16.0) gm/dL Hct 38.8 (34.0-46.0) % MCV 98.1 (80.0-100.0) fL MCH 32.6 (25.0-35.0) pg MCHC 33.3 (31.0-37.0) g/dL RDW 12.8 (11.5-15.5) % Plt Count 238 (150-450) k/uL MPV 7.3 Neutrophils % 88 % Lymphocytes % 6 % Monocytes % 5 % Eosinophils % 1 % Basophils % 0 % Neutrophils # 6.8 (1.3-7.7) k/uL Lymphocytes # 0.5 L (1.0-4.8) k/uL Monocytes # 0.4 (0-1.0) k/uL Eosinophils # 0.1 (0-0.7) k/uL Basophils # 0.0 (0-0.2) k/uL PT 10.7 (10.0-12.5) sec INR 1.0 (<1.2) APTT 19.9 L (22.0-30.0) sec Sodium (137-145) mmol/L Potassium (3.5-5.1) mmol/L Chloride (98-107) mmol/L Carbon Dioxide (22-30) mmol/L Anion Gap mmol/L BUN (7-17) mg/dL Creatinine (0.52-1.04) mg/dL Est GFR (CKD-EPI)AfAm (>60 ml/min/1.73 sqM) Est GFR (CKD-EPI)NonAf (>60 ml/min/1.73 sqM) Glucose (74-99) mg/dL POC Glucose (mg/dL) 96 (70-110) mg/dL POC Glu Community Action Worker ID Sara Apodaca Calcium (8.4-10.2) mg/dL Total Bilirubin (0.2-1.3) mg/dL AST (14-36) U/L ALT (4-34) U/L Alkaline Phosphatase (38-126) U/L Creatine Kinase (30-135) U/L CK-MB (CK-2) (0.0-3.4) ng/mL Troponin I (0.000-0.034) ng/mL Total Protein (6.3-8.2) g/dL Albumin (3.5-5.0) g/dL Urine Color Urine Appearance (Clear) Urine pH (5.0-8.0) Ur Specific [place] (1.001-1.035) Urine Protein (Negative) Urine Glucose (UA) (Negative) Urine Ketones (Negative) Urine Blood (Negative) Urine Nitrite (Negative) Urine Bilirubin (Negative) Urine Urobilinogen (<2.0) mg/dL Ur Leukocyte Esterase (Negative) Urine RBC (0-5) /hpf Urine WBC (0-5) /hpf Ur Squamous Epith Cells (0-4) /hpf Urine Mucus (None) /hpf Serum Alcohol mg/dL 03/15/23 03/15/23 03/15/23 Range/Units 22:33 22:33 22:33 WBC (3.8-10.6) k/uL RBC (3.80-5.40) m/uL Hgb (11.4-16.0) gm/dL Hct (34.0-46.0) % MCV (80.0-100.0) fL MCH (25.0-35.0) pg MCHC (31.0-37.0) g/dL RDW (11.5-15.5) % Plt Count (150-450) k/uL MPV Neutrophils % % Lymphocytes % % Monocytes % % Eosinophils % % Basophils % % Neutrophils # (1.3-7.7) k/uL Lymphocytes # (1.0-4.8) k/uL Monocytes # (0-1.0) k/uL Eosinophils # (0-0.7) k/uL Basophils # (0-0.2) k/uL PT (10.0-12.5) sec INR (<1.2) APTT (22.0-30.0) sec Sodium 133 L (137-145) mmol/L Potassium 4.0 (3.5-5.1) mmol/L Chloride 100 (98-107) mmol/L Carbon Dioxide 23 (22-30) mmol/L Anion Gap 10 mmol/L BUN 20 H (7-17) mg/dL Creatinine 0.38 L (0.52-1.04) mg/dL Est GFR (CKD-EPI)AfAm >90 (>60 ml/min/1.73 sqM) Est GFR (CKD-EPI)NonAf >90 (>60 ml/min/1.73 sqM) Glucose 100 H (74-99) mg/dL POC Glucose (mg/dL) (70-110) mg/dL POC Glu Community Action Worker ID Calcium 8.9 (8.4-10.2) mg/dL Total Bilirubin 1.2 (0.2-1.3) mg/dL AST 70 H (14-36) U/L ALT 35 H (4-34) U/L Alkaline Phosphatase 137 H (38-126) U/L Creatine Kinase 1101 H* (30-135) U/L CK-MB (CK-2) 14.1 H (0.0-3.4) ng/mL Troponin I 0.032 (0.000-0.034) ng/mL Total Protein 6.8 (6.3-8.2) g/dL Albumin 4.0 (3.5-5.0) g/dL Urine Color Yellow Urine Appearance Clear (Clear) Urine pH 6.0 (5.0-8.0) Ur Specific [place] 1.022 (1.001-1.035) Urine Protein Trace H (Negative) Urine Glucose (UA) Negative (Negative) Urine Ketones 2+ H (Negative) Urine Blood Moderate H (Negative) Urine Nitrite Negative (Negative) Urine Bilirubin Negative (Negative) Urine Urobilinogen <2.0 (<2.0) mg/dL Ur Leukocyte Esterase Negative (Negative) Urine RBC 49 H (0-5) /hpf Urine WBC 2 (0-5) /hpf Ur Squamous Epith Cells 1 (0-4) /hpf Urine Mucus Many H (None) /hpf Serum Alcohol <10 mg/dL - EKG Data -: EKG Interpreted by Me EKG shows normal: sinus rhythm, axis (Normal), intervals (Normal), QRS complexes (Normal), ST-T waves (Normal) Rate: normal (Rate 79 bpm) Disposition Clinical Impression: Altered mental status, Dehydration Disposition: ADMITTED IP TO THIS HOSP Condition: Fair Is patient prescribed a controlled substance at d/c from ED?: No
[2023-03-15 22:43] LABS: Basophils % (A) 0 %; Eosinophils # (A) 0.1 k/uL (0-0.7); Eosinophils % (A) 1 %; HCT 38.8 % (34.0-46.0); HGB 12.9 gm/dL (11.4-16.0); Lymphocytes # (A) 0.5 k/uL (1.0-4.8); Lymphocytes % (A) 6 %; MCH 32.6 pg (25.0-35.0); MCHC 33.3 g/dL (31.0-37.0); MCV 98.1 fL (80.0-100.0); Mean Platelet Volume 7.3; Monocytes # (A) 0.4 k/uL (0-1.0); Monocytes % (A) 5 %; Neutrophils # (A) 6.8 k/uL (1.3-7.7); Neutrophils % (A) 88 %; Platelet Count 238 k/uL (150-450); RBC 3.96 m/uL (3.80-5.40); RDW 12.8 % (11.5-15.5); WBC 7.7 k/uL (3.8-10.6)
[2023-03-15 22:51] LABS: ALT 35 U/L (4-34); African American GFR (CKD) >90 (>60 ml/min/1.73 sqM); Alcohol <10 mg/dL; Anion Gap 10 mmol/L; Blood Urea Nitrogen 20 mg/dL (7-17); Calcium 8.9 mg/dL (8.4-10.2); Carbon Dioxide 23 mmol/L (22-30); Chloride 100 mmol/L (98-107); Glucose 100 mg/dL (74-99); Non-African American GFR(CKD) >90 (>60 ml/min/1.73 sqM); Sodium 133 mmol/L (137-145); Total Bilirubin 1.2 mg/dL (0.2-1.3); Total Protein 6.8 g/dL (6.3-8.2)
[2023-03-15 23:03] LABS: Creatine Kinase MB 14.1 ng/mL (0.0-3.4); Troponin I 0.032 ng/mL (0.000-0.034)
--- NOTE | 2023-03-15 23:05 | XR ---
EXAM: XR Chest, 2 Views CLINICAL HISTORY: ITS.REASON XR Reason: altered mental status TECHNIQUE: Frontal and lateral views of the chest. COMPARISON: No relevant prior studies available. FINDINGS: Lungs: Unremarkable. No consolidation. Pleural space: Unremarkable. No pneumothorax. Heart: Cardiomegaly. Mediastinum: Unremarkable. Normal mediastinal contour. Bones/joints: Unremarkable. No acute fracture. Vasculature: Calcified aorta. IMPRESSION: No acute findings in the chest.
--- NOTE | 2023-03-15 23:06 | CT ---
EXAM: CT Head Without Intravenous Contrast CLINICAL HISTORY: ITS.REASON CT Reason: Altered mental status TECHNIQUE: Axial computed tomography images of the head/brain without intravenous contrast. CTDI is 49.2 mGy and DLP is 1183.4 mGy-cm. This CT exam was performed using one or more of the following dose reduction techniques: automated exposure control, adjustment of the mA and/or kV according to patient size, and/or use of iterative reconstruction technique. COMPARISON: No relevant prior studies available. FINDINGS: No acute intracranial hemorrhage. No midline shift or mass effect. The territorial ramirez-white matter differentiation is maintained throughout. Age-related cerebral volume loss. Periventricular and subcortical white matter hypoattenuation, consistent with chronic microangiopathy. The visualized orbits appear grossly unremarkable. The calvarium is intact. The visualized paranasal sinuses and mastoid air cells are grossly clear. IMPRESSION: No acute intracranial hemorrhage, midline shift, or mass effect.
[2023-03-15 23:09] LABS: AST 70 U/L (14-36); Alkaline Phosphatase 137 U/L (38-126); Creatine Kinase 1101 U/L (30-135); Prothrombin Time 10.7 sec (10.0-12.5)
--- NOTE | 2023-03-15 23:09 | XR ---
EXAM: XR Pelvis, 1 or 2 Views CLINICAL HISTORY: ITS.REASON XR Reason: altered mental status TECHNIQUE: Frontal view of the pelvis. COMPARISON: No relevant prior studies available. FINDINGS: Bones/joints: Bilateral hip arthroplasties. Anatomic alignment. Osseous demineralization. No subluxation. No acute fracture. Soft tissues: Unremarkable. IMPRESSION: 1. No acute fracture. 2. Bilateral hip arthroplasties. Anatomic alignment.
[2023-03-15 23:34] LABS: Partial Thromboplastin Time 19.9 sec (22.0-30.0)
[2023-03-15 23:51] LABS: Appearance,Urine Clear (Clear); Bilirubin,Urine Negative (Negative); Blood,Urine Moderate (Negative); Color,Urine Yellow; Glucose,Urine (UA) Negative (Negative); Ketones,Urine 2+ (Negative); Leukocyte Esterase,Urine Negative (Negative); Mucus,Urine Many /hpf; Nitrite,Urine Negative (Negative); Protein,Urine Trace (Negative); RBC,Urine 49 /hpf (0-5); Specific Gravity,Urine 1.022 (1.001-1.035); Squamous Epithelial Cell,Urine 1 /hpf (0-4); Urobilinogen,Urine <2.0 mg/dL (<2.0); WBC,Urine 2 /hpf (0-5)
[2023-03-15] MEDS ORDERED: SODIUM CHLORIDE 0.9% 500 ML 500 ML IV STA (23:52)
[2023-03-16] MEDS ORDERED: NALOXONE 0.4 MG/ML 1 ML VIAL IV PRN (01:48)
[2023-03-16] MEDS ORDERED: MAG HYDROX/AL HYDROX/SIMETH 30 ML CUP PO PRN (01:48)
[2023-03-16] MEDS ORDERED: SODIUM CHLORIDE 0.9% 1,000 ML IV SCH (02:00)
--- NOTE | 2023-03-16 09:45 | P.HPIM ---
History of Present Illness 82-year-old the female was brought in after neighbors found her lying down on the floor at her residence patient lives by herself her recently. Patient appears to have dementia which appears to be pretty advanced and the patient is having confusional episodes more often lately patient denied any symptoms at this time patient has chronic low back pain for which patient is on tramadol and cyclobenzaprine which can cause confusion. All the workup is negative for sepsis. CT of the head was done which did not show any significant acute abnormality. Patient is slightly hyponatremic. Patient is alert oriented 1-2 but in regards to answering questions patient appears to be more appropriate with the occasionally goes tangential. REVIEW OF SYSTEMS: CONSTITUTIONAL: No fever, no malaise, no fatigue. HEENT: No recent visual problems or hearing problems. Denied any sore throat. CARDIOVASCULAR: No chest pain, orthopnea, PND, no palpitations, no syncope. PULMONARY: No shortness of breath, no cough, no hemoptysis. GASTROINTESTINAL: No diarrhea, no nausea, no vomiting, no abdominal pain. NEUROLOGICAL: No headaches, no weakness, no numbness. HEMATOLOGICAL: Denies any bleeding or petechiae. GENITOURINARY: Denies any burning micturition, frequency, or urgency. MUSCULOSKELETAL/RHEUMATOLOGICAL: Denies any joint pain, swelling, or any muscle pain. ENDOCRINE: Denies any polyuria or polydipsia. The rest of the 14-point review of systems is negative. PHYSICAL EXAMINATION: GENERAL: The patient is alert and oriented x1-2, not in any acute distress. Thin built HEENT: Pupils are round and equally reacting to light. EOMI. No scleral icterus. No conjunctival pallor. Normocephalic, atraumatic. No p haryngeal erythema. No thyromegaly. CARDIOVASCULAR: S1 and S2 present. No murmurs, rubs, or gallops. PULMONARY: Chest is clear to auscultation, no wheezing or crackles. ABDOMEN: Soft, nontender, nondistended, normoactive bowel sounds. No palpable organomegaly. MUSCULOSKELETAL: No joint swelling or deformity. EXTREMITIES: No cyanosis, clubbing, or pedal edema. NEUROLOGICAL: Gross neurological examination did not reveal any focal deficits. SKIN: No rashes. Assessment and plan -Altered mental status probably slight to metabolic encephalopathy secondary to mild dehydration. Can be just advancing dementia patient will need physical therapy and patient therapy will hold off on tramadol was use Tylenol and Toradol for pain patient may need placement. Flexeril will be discontinued but if patient needs muscle relaxants probably should use methocarbamol which has much less sedative affect. -Chronic low back pain - advanced dementia probably vascular DVT prophylaxis: Lovenox low-dose subcutaneous Past Medical History Past Medical History: Hyperlipidemia, Hypertension Additional Past Medical History / Comment(s): left leg varicose veins History of Any Multi-Drug Resistant Organisms: None Reported Past Surgical History: Breast Surgery, Tonsillectomy Additional Past Surgical History / Comment(s): benign breast bx, archie cataracts, fatty tumor groin, colonoscopy Past Anesthesia/Blood Transfusion Reactions: Previous Problems w/ Anesthesia, Postoperative Nausea & Vomiting (PONV) Additional Past Anesthesia/Blood Transfusion Reaction / Comment(s): states "sensitive" to anesthesia, "took several days to clear my system", an anesthesia "cocktail" caused nausea Past Psychological History: No Psychological Hx Reported Past Alcohol Use History: Occasional Past Drug Use History: None Reported - Past Family History Sister(s) Family Medical History: Cancer Additional Family Medical History / Comment(s): Patient had one sister that at 50 years of age from kidney cancer. No brothers. Father Additional Family Medical History / Comment(s): Father at age 86 from complications of a lung fungus. Mother Additional Family Medical History / Comment(s): Mother at age 91 from old age. Patient has 3 children with no major medical problems. Medications and Allergies Home Medications Medication Instructions Recorded Confirmed Type Acetaminophen [Tylenol 8 Hour] 650 - 1,300 mg PO Q8H PRN 03/16/23 03/16/23 Hist ory Alendronate Sodium [Fosamax] 70 mg PO Q7D 03/16/23 03/16/23 History Baclofen 5 mg PO BID 03/16/23 03/16/23 History Donepezil [Aricept] 10 mg PO HS 03/16/23 03/16/23 History traMADol HCl [Ultram] 25 mg PO Q12H PRN 03/16/23 03/16/23 History Allergies Allergy/AdvReac Type Severity Reaction Status Date / Time codeine Allergy Unknown Verified 03/15/23 22:25 hydromorphone [From Dilaudid] Allergy Hallucinations Verified 03/15/23 22:25 for a few days after taking Physical Exam Vitals: Vital Signs Temp Pulse Resp BP Pulse Ox 03/16/23 05:39 98.2 F 73 16 154/75 97 03/16/23 03:06 71 16 163/78 96 03/16/23 01:47 75 16 171/82 96 03/15/23 22:22 98.8 F 82 18 186/93 100 Intake and Output 03/15/23 03/16/23 03/16/23 22:59 06:59 14:59 Other: Weight 45.359 kg Results CBC & Chem 7: 03/15/23 22:33 03/15/23 22:33 Labs: Abnormal Lab Results - Last 24 Hours (Table) 03/15/23 03/15/23 03/15/23 Range/Units 22:33 22:33 22:33 Lymphocytes # 0.5 L (1.0-4.8) k/uL APTT 19.9 L (22.0-30.0) sec Sodium 133 L (137-145) mmol/L BUN 20 H (7-17) mg/dL Creatinine 0.38 L (0.52-1.04) mg/dL Glucose 100 H (74-99) mg/dL AST 70 H (14-36) U/L ALT 35 H (4-34) U/L Alkaline Phosphatase 137 H (38-126) U/L Creatine Kinase 1101 H* (30-135) U/L CK-MB (CK-2) (0.0-3.4) ng/mL Urine Protein (Negative) Urine Ketones (Negative) Urine Blood (Negative) Urine RBC (0-5) /hpf Urine Mucus (None) /hpf 03/15/23 03/15/23 Range/Units 22:33 22:33 Lymphocytes # (1.0-4.8) k/uL APTT (22.0-30.0) sec Sodium (137-145) mmol/L BUN (7-17) mg/dL Creatinine (0.52-1.04) mg/dL Glucose (74-99) mg/dL AST (14-36) U/L ALT (4-34) U/L Alkaline Phosphatase (38-126) U/L Creatine Kinase (30-135) U/L CK-MB (CK-2) 14.1 H (0.0-3.4) ng/mL Urine Protein Trace H (Negative) Urine Ketones 2+ H (Negative) Urine Blood Moderate H (Negative) Urine RBC 49 H (0-5) /hpf Urine Mucus Many H (None) /hpf
[2023-03-16] MEDS: LACTATED RINGERS 1,000 ML IV SCH (10:38)
[2023-03-16] MEDS: FAMOTIDINE 20 MG TAB PO SCH ×2 (10:41→20:46)
[2023-03-16] MEDS: DONEPEZIL 10 MG TAB PO SCH (20:46)
[2023-03-16] MEDS: ACETAMINOPHEN TAB 325 MG TAB PO PRN (20:50)
[2023-03-17] MEDS: KETOROLAC 15 MG/ML 1 ML VIAL IVP PRN (00:39)
[2023-03-17] MEDS: LACTATED RINGERS 1,000 ML IV SCH (00:40)
[2023-03-17] MEDS: ENOXAPARIN 30 MG/0.3 ML SYRINGE SQ SCH (09:14)
[2023-03-17] MEDS: FAMOTIDINE 20 MG TAB PO SCH (09:14)
[2023-03-17] MEDS: FOLIC ACID 1 MG TAB PO SCH (11:49)
[2023-03-17] MEDS: MULTIVITAMINS, THERA 1 EACH TAB PO SCH (11:50)
--- NOTE | 2023-03-17 12:50 | PN ---
PROGRESS NOTE DATE OF SERVICE: 03/17/2023 SUBJECTIVE: This 82-year-old woman was admitted for change in mental status and dehydration, is being closely monitored at this time. The patient appears to have some dementia also. The patient is confused and sodium is 133. CK-MB is 1101, indicating acute rhabdomyolysis. OBJECTIVE: VITAL SIGNS: Pulse is 78, blood pressure 212/79, respirations 16. CHEST: Few scattered rhonchi and crackles. ABDOMEN: Soft. NERVOUS SYSTEM: No focal deficits. REVIEW OF SYSTEMS: Could not be taken. CURRENT MEDICATIONS: Reviewed. LABORATORY DATA: Reviewed personally. Chest x-ray, CT brain and chest x-ray is also reviewed. ASSESSMENT: 1. Change in mental status and possibly hypertensive encephalopathy. 2. Acute metabolic encephalopathy. 3. Dementia. 4. Hyponatremia. 5. Acute rhabdomyolysis. 6. Fall and gait dysfunction. 7. Hypertension. 8. Hyperlipidemia. 9. Varicose veins. 10.Full code. RECOMMENDATION: This 82-year-old woman presented with multiple complex medical issues, we will monitor the patient closely. I have recommended to continue the current medications. Continue symptomatic treatment. Continue the IV hydration cautiously. Resume the home medications. Repeat labs. PT/OT evaluation, possible ECF rehab. Guarded prognosis. Further recommendations to follow. MMODL / IJN: [id number] /
[2023-03-17] MEDS ORDERED: hydrALAZINE HCL 20 MG/ML 1 ML VIAL IVP PRN (12:59)
[2023-03-17] MEDS: amLODIPine 10 MG TAB PO SCH (13:22)
[2023-03-17 14:04] LABS: BUN/Creat Ratio 37.25 Ratio (12.00-20.00); Blood Urea Nitrogen 14.9 mg/dL (9.0-27.0); Calcium 8.3 mg/dL (8.7-10.3); Carbon Dioxide 26.6 mmol/L (21.6-31.8); Chloride 102 mmol/L (96-109); Glucose 86 mg/dL (70-110); Potassium 3.7 mmol/L (3.5-5.5); Sodium 137 mmol/L (135-145)
[2023-03-17 14:19] VITALS: BMI 16.6
[2023-03-17] MEDS: ACETAMINOPHEN TAB 325 MG TAB PO PRN ×2 (14:25→19:39)
[2023-03-17] MEDS: THIAMINE 100 MG TAB PO SCH (16:49)
[2023-03-17] MEDS: DONEPEZIL 10 MG TAB PO SCH (19:40)
[2023-03-18 08:13] LABS: Basophils % (A) 1 %; Eosinophils # (A) 0.1 k/uL (0-0.7); Eosinophils % (A) 1 %; HCT 35.9 % (34.0-46.0); HGB 11.9 gm/dL (11.4-16.0); Lymphocytes # (A) 1.2 k/uL (1.0-4.8); Lymphocytes % (A) 23 %; MCH 32.1 pg (25.0-35.0); MCHC 33.2 g/dL (31.0-37.0); MCV 96.5 fL (80.0-100.0); Mean Platelet Volume 7.5; Monocytes # (A) 0.3 k/uL (0-1.0); Monocytes % (A) 6 %; Neutrophils # (A) 3.4 k/uL (1.3-7.7); Neutrophils % (A) 67 %; Platelet Count 223 k/uL (150-450); RBC 3.72 m/uL (3.80-5.40); WBC 5.1 k/uL (3.8-10.6)
[2023-03-18 08:32] LABS: ALT 29 U/L (4-34); AST 41 U/L (14-36); African American GFR (CKD) >90 (>60 ml/min/1.73 sqM); Albumin 3.3 g/dL (3.5-5.0); Albumin/Globulin Ratio 1.3; Alkaline Phosphatase 115 U/L (38-126); Anion Gap 6 mmol/L; Blood Urea Nitrogen 15 mg/dL (7-17); Calcium 8.5 mg/dL (8.4-10.2); Carbon Dioxide 30 mmol/L (22-30); Chloride 97 mmol/L (98-107); Creatine Kinase 217 U/L (30-135); Globulin 2.6 g/dL; Glucose 86 mg/dL (74-99); Non-African American GFR(CKD) >90 (>60 ml/min/1.73 sqM); Potassium 3.3 mmol/L (3.5-5.1); Sodium 133 mmol/L (137-145); Total Bilirubin 0.5 mg/dL (0.2-1.3); Total Protein 5.9 g/dL (6.3-8.2)
[2023-03-18] MEDS: THIAMINE 100 MG TAB PO SCH ×2 (08:47→17:17)
[2023-03-18] MEDS: ENOXAPARIN 30 MG/0.3 ML SYRINGE SQ SCH (08:47)
[2023-03-18] MEDS: PANTOPRAZOLE 40 MG TABLET PO SCH (08:47)
[2023-03-18] MEDS: amLODIPine 10 MG TAB PO SCH (08:47)
[2023-03-18] MEDS ORDERED: Potassium Replacement Protocol 1 EACH MISC MISCELLANE PRN ×2 (09:58→15:44)
[2023-03-18] MEDS: POTASSIUM CHLORIDE ER 20 MEQ TAB.ER PO SCH ×2 (10:16→12:11)
[2023-03-18] MEDS: FOLIC ACID 1 MG TAB PO SCH (12:11)
[2023-03-18] MEDS: MULTIVITAMINS, THERA 1 EACH TAB PO SCH (12:11)
[2023-03-18] MEDS: KETOROLAC 15 MG/ML 1 ML VIAL IVP PRN (14:01)
[2023-03-18] MEDS ORDERED: Magnesium Replacement Protocol 1 EACH MISC MISCELLANE PRN (15:44)
[2023-03-18] MEDS: DONEPEZIL 10 MG TAB PO SCH (20:21)
--- NOTE | 2023-03-19 05:20 | PN ---
PROGRESS NOTE DATE OF SERVICE: 03/18/2023 SUBJECTIVE: This is an 82-year-old woman, who was admitted with change in mental status and dehydration, is being closely monitored. The patient appears to have some dementia. There is no evidence of any sepsis at this time. The patient had grade 2 sacral ulcer. The patient also has some hyponatremia and hyperlipidemia also. I talked with son, who lives in [facility], and he would like the patient to be transferred to ECF close to his home. PAST MEDICAL HISTORY: Could not be taken. REVIEW OF SYSTEMS: Could not be taken. CURRENT MEDICATIONS: Reviewed include Norvasc, doses and rest of the medications noted. PHYSICAL EXAMINATION: VITAL SIGNS: n, respirations 16. CHEST: Clear to auscultation. ABDOMEN: Soft. NERVOUS SYSTEM: Nonfocal. LABS: Reviewed. Creatine kinase is improving. ASSESSMENT: 1. Change in mental status and possibly hypertensive encephalopathy. 2. Acute metabolic encephalopathy. 3. Dementia. 4. Hyponatremia. 5. Acute rhabdomyolysis, improving. 6. Fall and gait dysfunction. 7. Mild hyponatremia. 8. Mild hypokalemia. 9. Hypertension. 10.Hyperlipidemia. 11.No code. RECOMMENDATIONS: Recommend to continue current management, symptomatic treatment. Continue with monitoring the blood pressure. As mentioned, there is no evidence of any infection at this time, PT/OT evaluation, possible ECF rehab. As mentioned earlier, the son would like the patient to be transferred to near his residence. We will continue to monitor. See orders for details. Supplement vitamins. Further recommendations to follow. MMODL / IJN: [id number] / MTDD
[2023-03-19 08:25] VITALS: BP 174/69; PULSE 89; RESP 16; TEMP 98.3
[2023-03-19] MEDS: ENOXAPARIN 30 MG/0.3 ML SYRINGE SQ SCH (09:22)
[2023-03-19] MEDS: ACETAMINOPHEN TAB 325 MG TAB PO PRN (09:22)
[2023-03-19] MEDS: THIAMINE 100 MG TAB PO SCH (09:23)
[2023-03-19] MEDS: MULTIVITAMINS, THERA 1 EACH TAB PO SCH (09:23)
[2023-03-19] MEDS: FOLIC ACID 1 MG TAB PO SCH (09:23)
[2023-03-19] MEDS: PANTOPRAZOLE 40 MG TABLET PO SCH (09:23)
[2023-03-19] MEDS: amLODIPine 10 MG TAB PO SCH (09:23)
[2023-03-19] MEDS ORDERED: Potassium Replacement Protocol 1 EACH MISC MISCELLANE PRN (10:14)
[2023-03-19 11:05] LABS: Basophils # (A) 0.05 X 10*3/uL (0.00-0.10); Basophils % (A) 1.1 %; Eosinophils # (A) 0.08 X 10*3/uL (0.04-0.35); Eosinophils % (A) 1.8 %; HCT 35.1 % (37.2-46.3); HGB 11.2 g/dL (12.0-15.0); Lymphocytes # (A) 1.37 X 10*3/uL (0.90-5.00); Lymphocytes % (A) 30.9 %; MCH 31.2 pg (27.0-32.0); MCHC 31.9 g/dL (32.0-37.0); MCV 97.8 FL (80.0-97.0); Mean Platelet Volume 9.4 FL (9.5-12.2); Monocytes # (A) 0.49 X 10*3/uL (0.20-1.00); NRBC Per 100 WBC 0 X 10*3/uL (0.00-0.01); Neutrophils # (A) 2.44 X 10*3/uL (1.80-7.70); Platelet Count 230 X 10*3/uL (140-440); RBC 3.59 X 10*6/uL (4.10-5.20); WBC 4.44 X 10*3/uL (4.50-10.00)
[2023-03-19 11:23] LABS: Blood Urea Nitrogen 19.4 mg/dL (9.0-27.0); Calcium 8.8 mg/dL (8.7-10.3); Carbon Dioxide 27.4 mmol/L (21.6-31.8); Chloride 99 mmol/L (96-109); Glucose 86 mg/dL (70-110); Magnesium 2.2 mg/dL (1.5-2.4); Potassium 4.2 mmol/L (3.5-5.5); Sodium 136 mmol/L (135-145)
--- NOTE | 2023-03-19 12:53 | P.DS ---
Providers Date of admission: 03/16/23 10:38 Expected date of discharge: 03/19/23 Attending physician: Jg Villeda MD Primary care physician: Justin Machado [place] [facility] Course: Final diagnosis Change in mental status and possible hypertensive encephalopathy, improved Acute metabolic encephalopathy secondary to dehydration, improving History of dementia Hyponatremia from poor oral intake acute rhabdomyolysis, improving Falling gait dysfunction with generalized weakness Mild hypokalemia history of hypertension History of hyperlipidemia No code Discharge disposition Patient is being discharged in a stable condition with guarded prognosis to ECF. Patient will follow-up with Dr. Machado in the outpatient setting upon discharge. Patient is to continue with current medications as mentioned below. Total time taken is greater than 35 minutes. Hospital course This is a 82-year-old female who was recently admitted here with weakness and change in mental status with mild dehydration. Patient also has history of dementia and having some generalized weakness with electrolyte abnormalities. Patient does have a stage II sacral ulcer present on admission and would recommend offloading frequently. Patient's family concerned with overall clinical picture and would like her to go somewhere closer to him who [facility] and case management following has found an accepting ECF and patient will be discharged today. Currently no reports of chest pain, shortness of breath, or palpitations. Patient is afebrile. No reports of nausea or vomiting and patient is tolerating diet. Patient will be going to ECF today. Guarded prognosis. Patient's CODE STATUS is no code Physical exam: Gen: This is a 82-year-old female who is awake, alert and oriented 1-2, elderly-appearing, well-developed, thin built HEENT: Head is atraumatic, normocephalic. Pupils equal, round. Sclerae is anicteric. NECK: Supple. No JVD. No lymphadenopathy. No thyromegaly. LUNGS: Clear to auscultation. No wheezes or rhonchi. No intercostal retractions. HEART: Regular rate and rhythm. No murmur. ABDOMEN: Soft. Bowel sounds are present. No masses. No tenderness. EXTREMITIES: No pedal edema. No calf tenderness. NEUROLOGICAL: Patient is awake, alert and oriented x1-2. Cranial nerves 2 through 12 are grossly intact. Diffusely weak Please refer to medication reconciliation sheet for a list of medications. The impression and plan of care has been dictated by Bety Lopez, Nurse Practitioner as directed. Dr. Jaun MD I have performed a history and examination and MDM of this patient, discussed the same with the dictator, and agree with the dictator's assessment and plan as written ,documented as a scribe. Based on total visit time, I have performed more than 50% of the visit. Patient Condition at Discharge: Fair Plan - Discharge Summary New Discharge Prescriptions: New Folic Acid 1 mg PO DAILY@1200 tab amLODIPine [Norvasc] 10 mg PO DAILY tab Thiamine [Vitamin B-1] 100 mg PO BID-W/MEALS tab Enoxaparin [Lovenox] 30 mg SQ DAILY each Mag Hydrox/Al Hydrox/Simeth [Maalox] 15 ml PO Q6HR PRN ml PRN Reason: Indigestion Multivitamins, Thera [Multivitamin (formulary)] 1 each PO DAILY@1200 tab Pantoprazole [Protonix] 40 mg PO AC-BRKFST tab Acetaminophen Tab [Tylenol] 650 mg PO Q6HR PRN tab PRN Reason: Mild Pain Or Fever > 100.5 Continue Alendronate Sodium [Fosamax] 70 mg PO Q7D Donepezil [Aricept] 10 mg PO HS Discontinued traMADol HCl [Ultram] 25 mg PO Q12H PRN PRN Reason: Pain Baclofen 5 mg PO BID Acetaminophen [Tylenol 8 Hour] 650 - 1,300 mg PO Q8H PRN PRN Reason: Pain Or Fever > 100.5 Discharge Medication List Alendronate Sodium [Fosamax] 70 mg PO Q7D 03/16/23 [History] Donepezil [Aricept] 10 mg PO HS 03/16/23 [History] Acetaminophen Tab [Tylenol] 650 mg PO Q6HR PRN tab 03/19/23 [Rx] Enoxaparin [Lovenox] 30 mg SQ DAILY each 03/19/23 [Rx] Folic Acid 1 mg PO DAILY@1200 tab 03/19/23 [Rx] Mag Hydrox/Al Hydrox/Simeth [Maalox] 15 ml PO Q6HR PRN ml 03/19/23 [Rx] Multivitamins, Thera [Multivitamin (formulary)] 1 each PO DAILY@1200 tab 03/19/23 [Rx] Pantoprazole [Protonix] 40 mg PO AC-BRKFST tab 03/19/23 [Rx] Thiamine [Vitamin B-1] 100 mg PO BID-W/MEALS tab 03/19/23 [Rx] amLODIPine [Norvasc] 10 mg PO DAILY tab 03/19/23 [Rx] Follow up Appointment(s)/Referral(s): Justin Machado MD [Primary Care Provider] - 1-2 days Discharge Disposition: TRANSFER TO SNF/ECF
== END 2023-03-19 14:25 | DRG 77 ==
LOC: EC 22:18 → 5NMEDONC 03-16 01:48 → OBSVTOIN 03-16 10:38 → 5NMEDONC 03-16 12:18
PROVIDERS: ADMIT Internal Medicine; ATTEND Internal Medicine
DX: I67.4 Hypertensive encephalopathy (principal); G93.41 Metabolic encephalopathy; E87.1 Hypo-osmolality and hyponatremia; M62.82 Rhabdomyolysis; E78.5 Hyperlipidemia, unspecified; E86.0 Dehydration; R53.1 Weakness; L89.152 Pressure ulcer of sacral region, stage 2; F03.90 Unspecified dementia, unspecified severity, without behavioral disturbance, psychotic disturbance, mood disturbance, and anxiety; E87.6 Hypokalemia; G89.29 Other chronic pain; M54.50 Low back pain, unspecified; I83.90 Asymptomatic varicose veins of unspecified lower extremity; Z79.83 Long term (current) use of bisphosphonates; Z98.42 Cataract extraction status, left eye; Z98.41 Cataract extraction status, right eye
CPT/HCPCS: 36415; 70450; 71046; 72170; 80048; 80053; 80320; 81001; 82550; 82553; 83735; 84484; 85025; 85610; 85730; 93005; 96360; 96361; 99285